=== PATIENT | female | born 1970 | race Caucasian/White ===

== ENCOUNTER 2019-10-04 14:07 | Emergency (ER) | payer SELFPAY ==
--- OUTSIDE RECORDS SUMMARY | 2019-10-04 14:11 | XMS REPORT ---
:1970 Author Organization eClinicalWorks Care Team Providers Name Role Phone Gay Jackson Provider Role Unavailable Allergies No Known Allergies Problems Problem Type Condition Code Onset Dates Condition Status Problem Arthralgia, unspecified joint M25.50 Active Problem Fatigue, unspecified type R53.83 Active Problem History of endometriosis Z87.42 Active Problem Diarrhea, unspecified type R19.7 Active Problem Hypokalemia E87.6 Active Problem Myalgia M79.1 Active Problem Hypomagnesemia E83.42 Active Problem IUD (intrauterine device) in place Z97.5 Active Problem Depression with anxiety F41.8 Active Problem Tobacco abuse counseling Z71.6 Active Problem Lower abdominal pain R10.30 Active Medications No Known Medications Results No Known Results Summary Purpose eClinicalWorks Submission
--- OUTSIDE RECORDS SUMMARY | 2019-10-04 14:11 | XMS REPORT ---
:1970 Author Organization eClinicalWorks Care Team Providers Name Role Phone Gay Jackson Provider Role Unavailable Allergies No Known Allergies Problems Problem Type Condition Code Onset Dates Condition Status Problem Diarrhea, unspecified type R19.7 Active Problem History of endometriosis Z87.42 Active Problem Arthralgia, unspecified joint M25.50 Active Problem Fibromyalgia M79.7 Active Problem Pinworms B80 Active Problem Muscle cramps R25.2 Active Problem Hypomagnesemia E83.42 Active Problem Fatigue, unspecified type R53.83 Active Problem Urinary incontinence, unspecified R32 Active type Problem Abdominal pain, unspecified R10.9 Active abdominal location Problem Lower abdominal pain R10.30 Active Problem Tobacco abuse counseling Z71.6 Active Problem Depression with anxiety F41.8 Active Problem Myalgia M79.1 Active Problem IUD (intrauterine device) in place Z97.5 Active Problem Hypokalemia E87.6 Active Medications No Known Medications Results No Known Results Summary Purpose eClinicalWorks Submission
--- OUTSIDE RECORDS SUMMARY | 2019-10-04 14:11 | XMS REPORT ---
[...] Problem Lower abdominal pain R10.30 Active Medications Medication Code System Code Instructions Start End Date Status Dosage Date Gabapentin [facility] 17176963936 300 MG Orally May 02, Active 1 capsule Twice a day 2018 Results No Known Results Summary Purpose eClinicalWorks Submission
--- OUTSIDE RECORDS SUMMARY | 2019-10-04 14:11 | XMS REPORT ---
:1970 [facility] Address [address] [place] [address] [place] [id number] Care Team Providers Name Role Phone Unavailable Unavailable Unavailable Problems This patient has no known problems. Allergies, Adverse Reactions, Alerts This patient has no known allergies or adverse reactions. Medications This patient has no known medications.
--- OUTSIDE RECORDS SUMMARY | 2019-10-04 14:11 | XMS REPORT ---
:1970 [facility] Team Providers Name Role Phone Gay [...] abdominal pain R10.30 Active Medications Medication Code Code Instructions Start End Status Dosage System Date Date Dicyclomine HCl ND 04463134472 20 MG Orally Active 1 tablet Four times a day Benadryl Allergy ND 35038266218 25 MG Orally Active 1 capsule every 8 hrs as needed Gabapentin ND 29405097229 300 MG Orally April 01, Active 1 capsule Twice a day 2017 for pain Wellbutrin XL ND 38207778888 300 MG Orally February Active 1 tablet Once a day 2017 in the morning Omeprazole ND 27893006442 20 MG Orally Active 1 capsule Once a day ProAir RespiClick [facility] 54327700293 108 (90 Base) Active 2 puffs as MCG/ACT needed Inhalation every 6 hrs Mirtazapine ND 03568076330 15 MG Orally Active 1 tablet Once a day at bedtime Clarithromycin ND 53998337567 500 MG Orally Active 1 tablet Twice a day x10 days Gabapentin ND 78021975586 600 MG Orally June 01, Active 1 tablet Twice daily 2017 Tylenol with ND 16472303806 300-30 MG Active 1 tablet Codeine #3 Orally every 6 as needed hrs Pristiq ND 38466039283 50 MG Orally Active 1 tablet Once a day Naprosyn ND 97703823060 500 MG Orally Active 1 tablet Twice a day with food or milk as needed Gabapentin [facility] 96406083035 300 MG Orally May 02, Active 1 capsule Twice a day 2017 Results No Known Results Summary Purpose eClinicalWorks Submission
[2019-10-04] MEDS ORDERED: HYDROCODONE/APAP 10/325 TAB ONE (14:43)
--- NOTE | 2019-10-04 15:12 | RAD REPORT ---
EXAM DESCRIPTION: RAD - Foot Left 3 View - 10/04/2019 2:55 pm CLINICAL HISTORY: PAIN COMPARISON: No comparisons FINDINGS: Soft tissue swelling is seen along the dorsum of the forefoot. No acute fracture dislocati on evident. Prominent posterior calcaneal spur.
--- NOTE | 2019-10-04 15:26 | ER ---
Nurse's Notes [facility] Name: Rajni Jasso Age: 49 yrs Sex: Female : 1970 Arrival Date: 10/04/2019 Time: 14:09 Bed 19 Private MD: Diagnosis: Contusion of left foot;Abrasion of foot Presentation: 10/04 14:15 Presenting complaint: Patient states: I was stepping out of the truck and stepped on to la1 a concrete block that flipped on to my left foot. Transition of care: patient was not received from another setting of care. Onset of symptoms was October 04, 2019. Risk Assessment: Do you want to hurt yourself or someone else? Patient reports no desire to harm self or others. Initial Sepsis Screen: Does the patient meet any 2 criteria? No. Patient's initial sepsis screen is negative. Does the patient have a suspected source of infection? No. Patient's initial sepsis screen is negative. Care prior to arrival: None. 14:15 Method Of Arrival: Wheelchair la1 14:15 Acuity: SYLVAIN 4 la1 Triage Assessment: 14:25 Injury Description: Bruise sustained to left foot. ca1 LEATHERSMITH: 14:14 LMP N/A - control method la1 Historical: - Allergies: 14:13 Flagyl; constipation, chest pains; la1 14:13 steroids; la1 14:14 Meclizine; la1 14:14 clarithromycin; la1 - PMHx: 14:13 Anxiety; la1 14:14 Fibromyalgia; la1 - Immunization history:: Adult Immunizations up to date. - Social history:: Smoking status: Patient uses tobacco products, smokes one pack cigarettes per day. - Ebola Screening: : No symptoms or risks identified at this time. Screenin:22 Abuse screen: Denies threats or abuse. Denies injuries from another. Nutritional ca1 screening: No deficits noted. Tuberculosis screening: No symptoms or risk factors identified. Fall Risk Fall in past 12 months (25 points). Assessment: 14:22 General: Appears in no apparent distress. comfortable, Behavior is calm, cooperative, ca1 appropriate for age. Pain: Complains of pain in left foot Pain currently is 10 out of 10 on a pain scale. Neuro: Level of Consciousness is awake, alert, obeys commands. Cardiovascular: Heart tones S1 S2 present Capillary refill < 3 seconds Patient's skin is warm and dry. Derm: Skin is intact, is healthy with good turgor, Skin is pink, warm \T\ dry. Bruising that is dark purple, on dorsum of left foot. Musculoskeletal: Circulation, motion, and sensation intact. Capillary refill < 3 seconds, Swelling present in dorsum of left foot. 15:30 Reassessment: Patient appears in no apparent distress at this time. Patient is alert, ca1 oriented x 3, equal unlabored respirations, skin warm/dry/pink. Vital Signs: 14:14 BP 140 / 91; Pulse 115; Resp 16; Temp 98.4; Pulse Ox 100% on R/A; Weight 100.24 kg; la1 Height 5 ft. 9 in. (175.26 cm); 15:30 BP 135 / 86; Pulse 99; Resp 17 S; Pulse Ox 100% on R/A; ca1 14:14 Body Mass Index 32.64 (100.24 kg, 175.26 cm) la1 ED Course: 14:09 Patient arrived in ED. mr 14:13 Arm band placed on left wrist. la1 14:15 Triage completed. la1 14:16 Edith Negrete FNP-C is [facility]. kb 14:16 Gus Nair MD is Attending Physician. kb 14:18 Makayla Jeffrey, ABHILASH is Primary Nurse. ca1 14:22 Patient has correct armband on for positive identification. Bed in low position. Call ca1 light in reach. Side rails up X 1. Pulse ox on. NIBP on. Elevated left foot Ice pack applied on affected area. 14:26 No provider procedures requiring assistance completed. Patient did not have IV access ca1 during this emergency room visit. 14:55 Foot Left 3 View XRAY In Process Unspecified. EDMS 15:40 Crutch training done. Ortho shoe applied to left foot. mh5 Administered Medications: 14:35 Drug: [place] 10 mg-325 mg 1 tabs Route: PO; ca1 15:35 Follow up: Response: No adverse reaction; Pain is decreased; RASS: Alert and Calm (0) ca1 Outcome: 15:25 Discharge ordered by . kb 15:52 Discharged to home with crutches, with family. ca1 15:52 Condition: stable 15:52 Discharge instructions given to patient, Instructed on discharge instructions, follow up and referral plans. medication usage, Demonstrated understanding of instructions, follow-up care, medications, Prescriptions given X 1. 15:52 Patient left the ED. ca1 Signatures: Dispatcher [employer] EDEdith Padgett, TIM-C TIM-Rebecca AlvaradoaMary Grace mr Brown, Giorgio, RN RN Shanae Del [facility] Makayla Jeffrey RN RN ca1
--- NOTE | 2019-10-04 15:26 | EDPHYS ---
Physician Documentation [facility] Name: Rajni Jasso Age: 49 yrs Sex: Female : 1970 Arrival Date: 10/04/2019 Time: 14:09 Bed 19 Private MD: ED Physician Gus Nair HPI: 10/04 15:23 This 49 yrs old Female presents to ER via Wheelchair with complaints of Foot kb Injury. 15:23 The patient presents with an abrasion, an injury, pain, that is acute, swelling, kb tenderness. The complaints affect the dorsum of left foot. Context: The problem was sustained outdoors, resulted from a direct blow, brick, the patient can fully bear weight, the patient is able to ambulate, Problem is a result from a previous injury: No. Onset: The symptoms/episode began/occurred just prior to arrival. Modifying factors: The symptoms are alleviated by nothing. the symptoms are aggravated by weight bearing. Associated signs and symptoms: Pertinent positives: swelling. Treatment prior to arrival includes: no previous treatment. Severity of symptoms: At their worst the symptoms were mild, moderate, in the emergency department the symptoms are unchanged. The patient has not experienced similar symptoms in the past. The patient has not recently seen a physician. 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 - Social history:: Smoking status: Patient uses tobacco products, smokes one pack cigarettes per day. - Ebola Screening: : No symptoms or risks identified at this time. ROS: 15:22 Constitutional: Negative for fever, chills, and weight loss, ENT: Negative for injury, kb pain, and discharge, Neck: Negative for injury, pain, and swelling, Cardiovascular: Negative for chest pain, palpitations, and edema, Respiratory: Negative for shortness of breath, cough, wheezing, and pleuritic chest pain, Abdomen/GI: Negative for abdominal pain, nausea, vomiting, diarrhea, and constipation, Back: Negative for injury and pain, Neuro: Negative for headache, weakness, numbness, tingling, and seizure. 15:22 MS/extremity: Positive for injury or acute deformity, abrasion, pain, swelling, tenderness, of the dorsum of left foot. Exam: 15:22 Constitutional: This is a well developed, well nourished patient who is awake, alert, kb and in no acute distress. Head/Face: Normocephalic, atraumatic. Chest/axilla: Normal chest wall appearance and motion. Nontender with no deformity. No lesions are appreciated. Cardiovascular: Regular rate and rhythm with a normal S1 and S2. No gallops, murmurs, or rubs. Normal PMI, no JVD. No pulse deficits. Respiratory: Lungs have equal breath sounds bilaterally, clear to auscultation and percussion. No rales, rhonchi or wheezes noted. No increased work of breathing, no retractions or nasal flaring. Abdomen/GI: Soft, non-tender, with normal bowel sounds. No distension or tympany. No guarding or rebound. No evidence of tenderness throughout. Neuro: Awake and alert, GCS 15, oriented to person, place, time, and situation. Cranial nerves II-XII grossly intact. Motor strength 5/5 in all extremities. Sensory grossly intact. Cerebellar exam normal. Normal gait. 15:22 Musculoskeletal/extremity: Extremities: grossly normal except: noted in the dorsum of left foot: abrasion, pain, swelling, tenderness, ROM: intact in all extremities, Circulation is intact in all extremities. Sensation intact. Weight bearing: able to fully bear weight. Vital Signs: 14:14 BP 140 / 91; Pulse 115; Resp 16; Temp 98.4; Pulse Ox 100% on R/A; Weight 100.24 kg; la1 Height 5 ft. 9 in. (175.26 cm); 15:30 BP 135 / 86; Pulse 99; Resp 17 S; Pulse Ox 100% on R/A; ca1 14:14 Body Mass Index 32.64 (100.24 kg, 175.26 cm) la1 MDM: 14:16 Patient medically screened. kb 15:21 Data reviewed: vital signs, nurses notes. Data interpreted: Pulse oximetry: on room air kb is 100 %. Interpretation: normal. Counseling: I had a detailed discussion with the patient and/or guardian regarding: the historical points, exam findings, and any diagnostic results supporting the discharge/admit diagnosis, lab results, the need for outpatient follow up, a family practitioner, to return to the emergency department if symptoms worsen or persist or if there are any questions or concerns that arise at home. 15:30 ED course: post op shoe and crutches given per pt request. 10/04 14:29 Order name: Foot Left 3 View XRAY; Complete Time: 15:13 10/04 15:30 Order name: Post-op Orthopedic Shoe 10/04 15:30 Order name: Crutches Administered Medications: 14:35 Drug: [place] 10 mg-325 mg 1 tabs Route: PO; ca1 15:35 Follow up: Response: No adverse reaction; Pain is decreased; RASS: Alert and Calm (0) ca1 Disposition: 16:33 Co-signature as Attending Physician, Gus Nair MD I agree with the assessment and kdr plan of care. Disposition: 10/04/19 15:25 Discharged to Home. Impression: Contusion of left foot, Abrasion of foot. - Condition is Stable. - Discharge Instructions: Foot Contusion, [id number]. - Prescriptions for Diclofenac Sodium 75 mg Oral Tablet, Delayed Release (E.C.) - take 1 tablet by ORAL route 2 times per day As needed; 30 tablet. - Medication Reconciliation Form, Thank You Letter, Antibiotic Education, Prescription Opioid Use form. - Follow up: Emergency Department; When: As needed; Reason: Worsening of condition. Follow up: Private Physician; When: 2 - 3 days; Reason: Recheck today's complaints, Continuance of care, Re-evaluation by your physician. Signatures: Dispatcher [employer] EDSC Edith Negrete, BORING MACHINE SET UP OPERATOR JIG-C BORING MACHINE SET UP OPERATOR JIG-Gus Medina MD MD kdr Attema, Lee, RN RN la1 Makayla Jeffrey RN RN ca1 Corrections: (The following items were deleted from the chart) 15:52 15:25 10/04/2019 15:25 Discharged to Home. Impression: Contusion of left foot; Abrasion ca1 of foot. Condition is Stable. Forms are Medication Reconciliation Form, Thank You Letter, Antibiotic Education, Prescription Opioid Use. Follow up: Emergency Department; When: As needed; Reason: Worsening of condition. Follow up: Private Physician; When: 2 - 3 days; Reason: Recheck today's complaints, Continuance of care, Re-evaluation by your physician. kb
[2019-10-04 17:08] VITALS: TEMP 98.4; O2SAT 100
[2019-10-04 17:09] VITALS: BP 135/86
== END 2019-10-04 15:52 | disposition home or self-care (01) ==
LOC: ER 14:07
DX: S90.32XA Contusion of left foot, initial encounter (principal); S90.812A Abrasion, left foot, initial encounter; W22.8XXA Striking against or struck by other objects, initial encounter; Y93.89 Activity, other specified; Y92.9 Unspecified place or not applicable; F17.210 Nicotine dependence, cigarettes, uncomplicated; Z88.3 Allergy status to other anti-infective agents
CPT/HCPCS: 99284

== ENCOUNTER 2023-03-22 14:04 | Emergency (ER) | payer OTHER ==
--- OUTSIDE RECORDS SUMMARY | 2023-03-22 14:08 | XMS REPORT | Continuity of Care Document ---
:1970 Author Organization [facility] t Address [address] [place] [id number] Care Team Providers Name Role Phone PCP, PATIENT DOES NOT HAVE A Primary Care Physician UnavailDARNELL Collins Attending Clinician Unavailable RIANNA VALERA Attending Clinician Unavailable FAREED ZIMMERMAN Attending Clinician Unavailable ADAL VALERA Attending Clinician Unavailable HANANE ARREDONDO Attending Clinician Unavailable HAYDE NAVA Attending Clinician Unavailable Payers Payer Name Policy Type Policy Number Effective Date Expiration Date S kevin RAMOSKALEIDA HEALTHEmilee [place] [id number] 2022 2022 HEALTH PLAN 00:00:00 00:00:00 [employer] 9 [id number] 2022 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 00:00:00 94 ON STAND KELLY MATHEWS - [id number] 2022 AETNA 00:00:00 Problems Condition Condition Condition Status Onset Resolution Last Treating Co mments Source Name Details Category Date Date Treatment Clinician Date Varicose Varicose Disease Active UT veins of veins of 01-11 Health both legs both legs 00:00: with edema with edema 00 PAOD PAOD Disease Active UT (periphera (periphera 01-06 He alth l arterial l arterial 00:00: occlusive occlusive 00 disease) disease) Arthralgia Arthralgia Problem Active C ommon , , Spirit unspecifie unspecifie - [facility]I d joint d joint [facility] Fatigue, Fatigue, Problem Active Commo n unspecifie unspecifie Sp zachary d type d type - CHI [facility] History of History of Problem Active C ommon endometrio endometrio Sp zachary sis sis [facility] Hypokalemi Hypokalemi Problem Active C ommon a a Spirit [facility] Myalgia Myalgia Problem Active Common [facility] Hypomagnes Hypomagnes Problem Active C ommon emia emia [facility] IUD IUD Problem Active Common (intrauter (intrauter Sp zachary ine [facility] device) in device) in [facility] Depression Depression Problem Active C ommon with with Spirit anxiety anxiety - [facility] Tobacco Tobacco Problem Active Common abuse abuse Spirit counseling counseling [facility] Lower Lower Problem Active Common abdominal abdominal Spir it pain pain [facility] Diarrhea, Diarrhea, Problem Active Com mon unspecifie unspecifie Sp zachary d type d [facility] Fibromyalg Fibromyalg Problem Active C ommon ia ia [facility] Pinworms Pinworms Problem Active Commo n [facility] Muscle Muscle Problem Active Common cramps cramps [facility] Urinary Urinary Problem Active Common incontinen incontinen Sp zachary ce, ce, - CHI unspecifie unspecifie d type d [facility] Abdominal Abdominal Problem Active Com mon pain, pain, Spirit unspecifie unspecifie - [facility] d d abdominal abdominal Luke s location location [facility] Allergies, Adverse Reactions, Alerts Allergy Allergy Status Severity Reaction(s) Onset Inactive Treating Comm ents Source Name Type Date Date Clinician Tobramyc Propensi Active Kelly in ty to 3-16 Seybold adverse 00:00: - reaction 00 Externa s l Meclizin Propensi Active Kelly e ty to 3-16 Seybold adverse 00:00: - reaction 00 Externa s l Prometha Allergy Active Other UT zine to 08-06 reaction( Health substan 00:00: s): Other e 00 Prometha Propensi Active Other Kelly henderson ty to 08-06 reaction( Seybold adverse 00:00: s): Other - reaction 00 Externa s l CLARITHR DRUG Active Anaphylaxis Uni vers OMYCIN INGREDI 5-05 ity of 00[facility]: [place] [facility] METRONID DRUG Active Anaphylaxis Uni vers AZOLE INGREDI 5-05 ity of HCL 00:00: [facility] MECLIZIN DRUG Active Anaphylaxis Uni vers E INGREDI 5-05 ity of 00:00: [facility] Clarithr Allergy Active Anaphylaxis Other UT omycin to 5-05 reaction( Health substanc 00:00: s): e 00 ireegular heart beats and high pulse Meclizin Allergy Active Anaphylaxis Other UT e to 5-05 reaction( Health substanc 00:00: s): e 00 caused severe dizziness /SOB/ches t heaviness Clarithr Propensi Active Anaphylaxis Other K elsey omycin ty to 5-05 reaction( Seybold adverse 00:00: s): - reaction 00 ireegular Exter na s heart l beats and high pulse Metronid Allergy Active Anaphylaxis 2016-11 Other UT azole to 1-17 reaction( Health substanc 00:00: s): e 00 Unknown Metronid Propensi Active Anaphylaxis 2016-11 Other K elsey azole ty to 1-17 reaction( Seybold Hcl adverse 00:00: s): - reaction 00 Unknown Externa s l Penicill Allergy Active Other UT ins to 5-27 reaction( Health substanc 00:00: s): e 00 Unknown Penicill Propensi Active Other Kelly ins ty to 5-27 reaction( Seybold adverse 00:00: s): - reaction 00 Unknown Externa s l PREDNISO DRUG Active Anaphylaxis 2013-11 Uni vers NE INGREDI 0-10 ity of 00:00: [place] [facility] Predniso Propensi Active Anaphylaxis 2013-11 U T ne ty to 0-10 Health adverse 00:00: reaction 00 s Predniso Propensi Active Anaphylaxis 2013-11 K elsey ne ty to 0-10 Seybold adverse 00:00: - reaction 00 Externa s l Steroids Adverse Active Info Not Commo n Reaction Available Spiri t - CHI [facility] Meclizin Adverse Active caused Common e HCl Reaction severe Spirit dizziness/SO - CH I B/chest St heaviness [facility] Clarithr Adverse Active ireegular Comm on omycin Reaction heart beats Spi rit and high - CHI pulse [facility] steroid Propensi Active Kelly [Other] ty to Seybold adverse - reaction Externa s l Social History Social Habit Start Date Stop Date Quantity Comments Source History of tobacco Cigarette Smoker Kelly Tuanedy - use External Alcohol intake 2023-01-25 2023-01-25 Ex-drinker Kelly cross - 00:00:00 00:00:00 (finding) External Cigarettes smoked 2023-01-21 2023-01-21 Kelly Dickersonedy - current (pack per 00:00:00 00:00:00 Externa l day) - Reported Cigarette 2023-01-21 2023-01-21 Kelly Dickersonedy - pack-years 00:00:00 00:00:00 External Tobacco use and 2023-01-21 2023-01-21 Smokeless tobacco Ke edith darline - exposure 00:00:00 00:00:00 non-user External Sex [birth year] At [birth year] Kelly gregorio - 00:00:00 00:00:00 External Smoking Status Start Date Stop Date Source Smokes tobacco daily 2023-01-21 00:00:00 Kelly Dickersonedy - External Medications Ordered Filled Start Stop Current Ordering Indication Dosage Frequency Signature Comments Components Source Medication Medication Date Date Medication? Clinician (SIG) Name Name Gabapentin 2022- No 800mg Take 800 K elsey 800 MG oral 3-20 03-20 mg by Seybol d Tablet 17:22: 00:00 mouth 3 - 27 :00 times Externa daily l Amitriptyli 2022- No 100mg Take 100 Kelly ne HCl 100 3-20 03-20 mg by Seybold MG oral 17:22: 00:00 mouth - Tablet 27 :00 nightly Externa l Metoprolol 2022- No 100mg Take 100 K elsey Succinate 3-20 03-20 mg by Seybold 100 MG oral 17:22: 00:00 mouth - TABLET SR 27 :00 daily Externa 24 HR l Folic Acid 2022- No 1mg Take 1 mg K elsey 1 MG oral 3-20 03-20 by mouth Seybo ld tablet 17:22: 00:00 daily - 27 :00 Externa l Omeprazole 2022- No 40mg Take 40 mg Kelly 40 MG oral 3-20 03-20 by mouth Seyb old Delayed 17:22: 00:00 daily - Release 27 :00 Externa Capsule l Escitalopra 2022- No 10mg Take 10 mg Kelly m Oxalate 3-20 03-20 by mouth Seybo ld 10 MG oral 17:22: 00:00 daily - Tablet 27 :00 Externa l Semaglutide Yes 1mg Inject 1 Ke lsey -Weight 3-20 mg into Seybold Management 14:58: the skin - (Wegovy) 1 15 once a Externa MG/0.5ML week l subcutaneou s Solution Auto-inject or Probiotic Yes Take by Kelse y Product 3-20 mouth Seybold (PROBIOTIC 14:54: - DAILY OR) 48 Externa l Vitamin D, Yes 1{tbl} Take 1 Angel sey Ergocalcife 3-20 tablet by Vasile denney, [id number] 14:53: mouth once - units oral 55 a week Externa Capsule l DiphenhydrA 2022- No 25mg Take 25 mg Kelly MINE 3-20 03-20 by mouth Seybold (BENADRYL) 14:50: 00:00 at bedtime - 25 MG oral 15 :00 Externa capsule l Bupropion 2022- No 150mg Take 150 Ke lsey HCL XL 150 3-20 03-20 mg by Seybold MG OR TB24 14:49: 00:00 mouth - 38 :00 Externa l Amitriptyli Yes [id number] 100mg Take 1 Kelly ne HCl 100 3-20 tablet Seybold MG oral 00:00: (100 mg - Tablet 00 total) by Externa mouth l nightly busPIRone Yes [id number] 10mg Take 1 K elsey HCl 10 MG 3-20 tablet (10 Seyb old oral Tablet 00:00: mg total) - 00 by mouth Externa daily l Escitalopra Yes [id number] 10mg Take 1 Kelly m Oxalate 3-20 tablet (10 Seyb old 10 MG oral 00:00: mg total) - Tablet 00 by mouth Externa daily l Metoprolol 2022-0 Yes [id number] 100mg Take 1 K elsey Succinate 3-20 tablet Seybold 100 MG oral 00:00: (100 mg - TABLET SR 00 total) by Exter na 24 HR mouth l daily Folic Acid 2022-0 Yes [id number] 1mg Take 1 Kelly 1 MG oral 3-20 tablet (1 Seybo ld tablet 00:00: mg total) - 00 by mouth Externa daily l Gabapentin 2022-0 Yes [id number] 800mg Take 1 Kelly 800 MG oral 3-20 tablet Seybol d Tablet 00:00: (800 mg - 00 total) by Externa mouth 3 l times daily Omeprazole 2022-0 Yes [id number] 40mg Take 1 Kelly 40 MG oral 3-20 capsule Seybol d Delayed 00:00: (40 mg - Release 00 total) by Externa Capsule mouth l daily Meloxicam 2022-0 Yes [id number] 7.5mg Take 1 Kelly 7.5 MG oral 3-20 tablet Seybol d Tablet 00:00: (7.5 mg - 00 total) by Externa mouth l daily Gabapentin 2022-0 2022- No 600mg Take 600 K elsey 600 MG oral 3-15 03-20 mg by Seybol d Tablet 00:00: 00:00 mouth 3 - 00 :00 times Externa daily l metoprolol 2022-0 Yes metoprolol U T succinate 3-06 succinate Healt h XL 10:42: ER 100 mg (Toprol-XL) 27 tablet,ext 100 MG 24 ended hr tablet release 24 hr TAKE ONE (1) TABLET(S) BY MOUTH DAILY. omeprazole 2022-0 Yes omeprazole U T (PriLOSEC) 3-06 [address] 10:42: capsule,de capsule 27 layed release TAKE ONE (1) CAPSULE(S) BY MOUTH ONCE A DAY. amitriptyli 2022-0 Yes amitriptyl UT ne (Elavil) 3-06 ine 100 mg He alth 100 MG 10:42: tablet tablet 26 TAKE ONE (1) TABLET(S) BY MOUTH ONCE A DAY. buPROPion 2022-0 Yes 150mg Take 150 UT XL 3-06 mg by Health (Wellbutrin 10:42: mouth. XL) 150 MG 26 24 hr tablet escitalopra Yes escitalopr UT m (Lexapro) 3-06 am 10 mg Heal th 10 MG 10:42: tablet tablet 26 TAKE ONE (1) TABLET(S) BY MOUTH ONCE A DAY. folic acid Yes folic acid U T (Folvite) 1 3-06 1 mg Health MG tablet 10:42: tablet 26 TAKE ONE (1) TABLET(S) BY MOUTH ONCE A DAY. gabapentin Yes gabapentin U T (Neurontin) 3-06 600 mg Health 600 MG 10:42: tablet tablet 26 TAKE ONE (1) TABLET(S) BY MOUTH THREE TIMES A DAY. busPIRone 2022- No 10mg Take 10 mg K elsey HCl 10 MG 2-18 03-20 by mouth Seybo ld oral Tablet 00:00: 00:00 daily - 00 :00 Externa l Acetaminoph Yes 1{tbl} Q.[id number] Take 1 Kelly en-Codeine 2-15 [id number] tablet by Seybedy #3 300-30 00:00: 3D mouth - MG oral 00 every 8 Externa Tablet hours as l needed Metronidazo 2022- No 500mg Take 500 Kelly le 500 MG 2-10 03-20 mg by Seybold oral Tablet 00:00: 00:00 mouth 2 - 00 :00 times Externa daily FOR l 7 DAYS Amitriptyli 2022- No 100mg Take 100 Kelly ne HCl 50 1-20 03-20 mg by Seybold MG oral 00:00: 00:00 mouth - Tablet 00 :00 nightly Externa l ergocalcife Yes [id number] Take UT rol 1-18 50,000 Health (Vitamin 00:00: Units by D2) 1.25 MG 00 mouth 1 (15441 UT) (one) time capsule per week. Gabapentin Gabapentin Yes Gay 1 tablet Common 7-25 [facility] Spirit 00:00: - [facility]I 00 [facility] Gabapentin Gabapentin Yes Gay 1 capsule Common 6-25 [facility] 00:00: - CHI 00 [facility] Wellbutrin Wellbutrin Yes Gay 1 tablet Common XL XL 4-27 Millender in the Spirit 00:00: morning - [facility]I 00 [facility] Dicyclomine Dicyclomine Yes Gay 1 tablet Common HCl HCl Millender [facility] Benadryl Benadryl Yes Gay 1 capsule C ommon Allergy Allergy Millender as needed [facility] Omeprazole Omeprazole Yes Gay 1 capsule Common Millender [facility] ProAir ProAir Yes Gay 2 puffs as Comm on RespiClick RespiClick Millender needed [facility] Mirtazapine Mirtazapine Yes Gay 1 tablet Common Millender at bedtime Spir it [facility] Clarithromy Clarithromy Yes Gay 1 tablet Common dany dany [facility] Tylenol Tylenol Yes Gay 1 tablet Comm on with with Millender as needed Spiri t Codeine #3 Codeine #3 - C HI [facility] Pristiq Pristiq Yes Gay 1 tablet Comm on Millender [facility] Naprosyn Naprosyn Yes Gay 1 tablet Co mmon Millender with food Spiri t or milk as - CHI needed [facility] Immunizations Ordered Immunization Filled Immunization Date Status Commen ts Source Name Name Tdap- (Boostrix, 2016-12-15 Completed Kelly martinez Adacel) 00:00:00 - External Rubella 2010-02-11 Aramis Mathews 00:00:00 - External Td,absorbed PF 2004-11-08 Completed Kelly cross KSC,Admin,unspecifie 00:00:00 - Ex ternal d Vital Signs Vital Name Observation Time Observation Value Comments Source Systolic blood 2023-01-25 19:43:00 102 mm[Hg] Kelly Mathews - pressure External Diastolic blood 2023-01-25 19:43:00 66 mm[Hg] Sammy Mathews - pressure External Heart rate 2023-01-25 19:43:00 81 /min Kelly martinez - External Body temperature 2023-01-25 19:43:00 36.67 Millie Bhavna Mathews - External Respiratory rate 2023-01-25 19:43:00 15 /min Bhavna Mathews - External Body height 2023-01-25 19:43:00 175.3 cm Kelly taylorbohaydee - External Body weight 2023-01-25 19:43:00 104.781 kg Kelly martinez - External BMI 2023-01-25 19:43:00 34.11 kg/m2 Kelly taylorbohaydee - External Procedures This patient has no known procedures. Encounters Start End Encounter Admission Attending Care Care Encounter Source Date/Time Date/Time Type Type Clinicians Facility Department ID 2023-02-11 Outpatient [facility] [id number] Common 10:57:00 [id number] [facility] 2023-02-08 Outpatient [facility] [id number] UT 12:33:20 [id number] [facility] 2023-02-05 Outpatient [facility] [id number] UT 10:42:09 [id number] [facility] 2023-02-04 Outpatient [facility] [id number] UT 12:13:56 [id number] [facility] 2023-02-01 Outpatient [facility] [id number] Common 10:49:00 [id number] [facility] 2023-01-25 Outpatient [facility] [id number] UT 14:14:33 [id number] [facility] 2023-01-11 Outpatient [facility] [id number] UT 09:13:23 [id number] [facility] 2023-01-07 Outpatient [facility] [id number] UT 14:08:56 [id number] [facility] 2022-12-31 Outpatient [facility] [id number] UT 16:58:36 [id number] [facility] 2022-12-28 Outpatient [facility] [id number] UT 13:00:57 [id number] [facility] 2022-03-20 Outpatient ALE, [facility] [id number] UT 13:13:47 DARNELL [id number] [facility] 2023-04-30 2023-04-30 Outpatient RIANNA VALERA [id number] Kelly 14:40:00 14:40:00 Seybol d 2023-04-30 2023-04-30 Outpatient KELLY ZIMMERMAN [id number] Kelly 14:10:00 14:10:00 FAREED Seybol d 2023-03-12 2023-03-12 Outpatient KELLY VALERA [id number] Kelly 00:00:00 00:00:00 ADAL Seybol d 2023-03-10 2023-03-10 Outpatient KELLY ARREDONDO [id number] Kelly 00:00:00 00:00:00 HANANE Seybol d 2023-03-08 2023-03-08 Outpatient KELLY ARREDONDO [id number] Kelly 00:00:00 00:00:00 HANANE Seybol d 2023-03-06 2023-03-06 Outpatient KELLY VALERA [id number] Kelly 00:00:00 00:00:00 ADAL Seybol d 2023-02-22 2023-02-22 Outpatient KELLY VALERA [id number] Kelly 00:00:00 00:00:00 ADAL Seybol d 2023-02-19 2023-02-19 Outpatient KELLY VALERA [id number] Kelly 00:00:00 00:00:00 ADAL Seybol d 2023-02-15 2023-02-15 Outpatient KELLY VALERA [id number] Kelly 00:00:00 00:00:00 ADAL Seybol d 2023-02-09 2023-02-09 Outpatient KELLY VALERA [id number] Kelly 00:00:00 00:00:00 ADAL Seybol d 2023-02-09 2023-02-09 Outpatient KELLY VALERA [id number] Kelly 00:00:00 00:00:00 ADAL Seybol d 2023-02-08 2023-02-08 Outpatient ALE [facility] [id number] UT 09:45:00 09:45:00 [facility] 2023-02-08 2023-02-08 Outpatient [facility] [id number] UT 09:00:00 09:00:00 Health 2023-02-08 2023-02-08 Outpatient KELLY VALERA [id number] Kelly 00:00:00 00:00:00 ADAL Seybol d 2023-02-08 2023-02-08 Outpatient KELLY VALERA [id number] Kelly 00:00:00 00:00:00 ADAL Seybol d 2023-01-27 2023-01-27 Outpatient KLELY VALERA [id number] Kelly 11:45:00 11:45:00 ADAL Seybol d 2023-01-26 2023-01-26 Outpatient KELLY VALERA [id number] Kelly 00:00:00 00:00:00 ADAL Seybol d 2023-01-25 2023-01-25 Outpatient KELLY VALERA [id number] Kelly 14:30:00 14:30:00 ADAL Seybol d 2023-01-25 2023-01-25 Outpatient KELLY VALERA [id number] Kelly 00:00:00 00:00:00 ADAL Seybol d 2023-01-25 2023-01-25 Outpatient KELLY VALERA [id number] Kelly 00:00:00 00:00:00 ADAL Seybol d 2023-01-21 2023-01-21 Outpatient KELLY VALERA [id number] Kelly 00:00:00 00:00:00 ADAL Seybol d 2023-01-11 2023-01-11 Office JULES AGUILERA [facility] [id number] [place] 09:15:00 09:15:00 Visit DARNELL ARNOLD [id number] Shane LOUIE [id number] [facility] [id number] 2021-02-21 2021-02-21 Outpatient Emilee NAVA [facility] [id number] Univers 12:10:00 11:45:22 HAYDE redd [facility] 2021-01-31 2021-01-31 Outpatient Emilee NAVA [facility] [id number] Univers 12:10:00 12:09:15 HAYDE redd [facility] 2019-04-13 2019-04-13 Out[facility] [id number] Common 16:39:00 16:39:00 [facility] 2018-07-08 2018-07-08 Out[facility] [id number] Common 08:43:00 08:43:[address] [facility] [address] [facility] 2018-06-01 2018-06-01 Out[facility] [id number] Common 12:39:00 12:39:[address] [facility] [address] [facility] 2018-05-02 2018-05-02 Out[facility] [id number] Common 11:12:00 11:12:[address] [facility] [address] [facility] 2018-04-07 2018-04-07 Out[facility] [id number] Common 10:51:00 10:51:[address] [facility] [address] [facility] 2018-04-05 2018-04-05 Out[facility] [id number] Common 11:14:00 11:14:[address] [facility] [address] [facility] 2018-04-01 2018-04-01 Out[facility] [id number] Common 13:00:00 13:00:[address] [facility] [address] [facility] Results This patient has no known results.
--- NOTE | 2023-03-22 14:46 | ER ---
Nurse's Notes [facility] Name: Rajni Jasso Age: 52 yrs Sex: Female : 1970 Arrival Date: 03/22/2023 Time: 14:04 Bed IW2 Private MD: Diagnosis: Foreign body in right ear Presentation: 03/22 14:24 Chief complaint: Patient states: Ear bud rubber piece in right ear. Pt states she noted nj1 a little bit ago when she look at the case and saw it missing. Ear was hurting but thought it was allergies until she realized piece was missing. Coronavirus screen: Vaccine status: Patient reports receiving the 2nd dose of the covid vaccine. Ebola Screen: Patient denies travel to an Ebola-affected area in the 21 days before illness onset. Initial Sepsis Screen: Does the patient meet any 2 criteria? No. Patient's initial sepsis screen is negative. Does the patient have a suspected source of infection? No. Patient's initial sepsis screen is negative. Risk Assessment: Do you want to hurt yourself or someone else? Patient reports no desire to harm self or others. Onset of symptoms was March 22, 2023. 14:24 Method Of Arrival: Ambulatory [facility] 14:24 Acuity: SYLVAIN 4 nj1 Triage Assessment: 14:24 General: Appears in no apparent distress. comfortable, Behavior is calm, cooperative, nj1 appropriate for age. Pain: Complains of pain in right ear Pain currently is 9 out of 10 on a pain scale. EENT: Reports Foreign object in right ear.. Neuro: Level of Consciousness is awake, alert, obeys commands. Cardiovascular: Patient's skin is warm and dry. Respiratory: Airway is patent Respiratory effort is even, unlabored. Historical: - Allergies: 14:28 Clarithromycin; nj1 14:28 Flagyl; constipation, chest pains; nj1 14:28 Meclizine; nj1 14:28 steroids; nj1 - Home Meds: 14:36 escitalopram oxalate 10 mg oral tablet 1 tab daily [Active]; metoprolol succinate 100 nj1 mg oral Tablet, Extended Release 24 hr 1 tab daily [Active]; folic acid 1 mg Oral tablet 1 tab daily [Active]; buspirone 10 mg Oral tablet 1 tab daily [Active]; omeprazole 40 mg Oral capsule,delayed release (e.c.) 1 cap daily [Active]; Vitamin D Oral 23919 unit daily [Active]; amitriptyline 100 mg Oral tablet 1 tab every day at bedtime [Active]; meloxicam 7.5 mg oral tablet 1 tab daily [Active]; gabapentin 800 mg oral tablet 1 tab 3 times per day [Active]; Probiotic oral [Active]; - PMHx: 14:28 Anxiety; Fibromyalgia; neuropathy; tachycardia; nj1 - Immunization history:: Client reports receiving the 2nd dose of the Covid vaccine. - Social history:: Smoking status: Patient reports the use of cigarette tobacco products, smokes one pack cigarettes per day. Vital Signs: 14:24 BP 134 / 80; Pulse 81; Resp 17; Temp 98.1; Pulse Ox 100% ; Weight 107.5 kg; Height 5 nj1 ft. 9 in. ; Pain 10/10; 14:24 Body Mass Index 35.00 (107.50 kg, 175.26 cm) nj1 14:24 Pain Scale: Adult [facility] ED Course: 14:06 Patient arrived in ED. rg4 14:28 Triage completed. nj1 14:30 Arm band placed on right wrist. nj1 14:33 Michael Anna DO is Attending Physician. ms3 15:31 No provider procedures requiring assistance completed. Patient did not have IV access ko1 during this emergency room visit. Administered Medications: No medications were administered Outcome: 14:46 Discharge ordered by MD. ms3 15:31 Discharged to home ambulatory. ko1 15:31 Condition: stable 15:31 Discharge instructions given to patient, Instructed on discharge instructions, follow up and referral plans. Demonstrated understanding of instructions, follow-up care. 15:32 Patient left the ED. ko1 Signatures: Melia Dos Santos rg4 Michael Anna DO DO ms3 Mariah Rodriges, RN RN ko1 Liyah Gallego, ABHILASH RN nj1 Corrections: (The following items were deleted from the chart) 14:47 14:20 General: Appears in no apparent distress. comfortable, Behavior is calm, nj1 cooperative, appropriate for age, nj1 14:47 14:20 Pain: Complains of pain in right ear Pain currently is 9 out of 10 on a pain nj1 scale. nj1 14:47 14:20 EENT: Reports Foreign object in right ear.. nj1 nj1 14:47 14:20 Neuro: Level of Consciousness is awake, alert, obeys commands, [place] [id number] 14:20 Cardiovascular: Patient's skin is warm and dry. [place] [id number] 14:20 Respiratory: Airway is patent Respiratory effort is even, unlabored, [place] [id number]
--- NOTE | 2023-03-22 14:46 | EDPHYS ---
Physician Documentation [facility] Name: Rajni Jasso Age: 52 yrs Sex: Female : 1970 Arrival Date: 03/22/2023 Time: 14:04 Bed IW2 Private MD: ED Physician Michael Anna HPI: 03/22 14:47 This 52 yrs old Female presents to ER via Ambulatory with complaints of Foreign Body In ms3 Ear. 14:47 52-year-old female with past medical history of anxiety, fibromyalgia, neuropathy, ms3 tachycardia presents for foreign body in right ear. Patient states she noticed the earbud in her ear approximately 30 minutes prior to arrival. Patient denies alleviating or inciting factors. Patient states she is having 10/10 right ear pain. Historical: - Allergies: 14:28 Clarithromycin; nj1 14:28 Flagyl; constipation, chest pains; nj1 14:28 Meclizine; nj1 14:28 steroids; nj1 - Home Meds: 14:36 escitalopram oxalate 10 mg oral tablet 1 tab daily [Active]; metoprolol succinate 100 nj1 mg oral Tablet, Extended Release 24 hr 1 tab daily [Active]; folic acid 1 mg Oral tablet 1 tab daily [Active]; buspirone 10 mg Oral tablet 1 tab daily [Active]; omeprazole 40 mg Oral capsule,delayed release (e.c.) 1 cap daily [Active]; Vitamin D Oral 71756 unit daily [Active]; amitriptyline 100 mg Oral tablet 1 tab every day at bedtime [Active]; meloxicam 7.5 mg oral tablet 1 tab daily [Active]; gabapentin 800 mg oral tablet 1 tab 3 times per day [Active]; Probiotic oral [Active]; - PMHx: 14:28 Anxiety; Fibromyalgia; neuropathy; tachycardia; nj1 - Immunization history:: Client reports receiving the 2nd dose of the Covid vaccine. - Social history:: Smoking status: Patient reports the use of cigarette tobacco products, smokes one pack cigarettes per day. ROS: 14:47 Constitutional: Negative for fever, and chills. Eyes: Negative for injury, pain, ms3 redness, and discharge, Neck: Negative for injury, pain, and swelling, Cardiovascular: Negative for chest pain, and palpitations. Respiratory: Negative for shortness of breath, cough, wheezing, and pleuritic chest pain, Abdomen/GI: Negative for abdominal pain, nausea, vomiting, diarrhea, and constipation, MS/Extremity: Negative for injury and deformity, Skin: Negative for injury, rash, and discoloration. 14:47 ENT: Positive for foreign body sensation. 14:47 All other systems are negative. Exam: 14:47 Constitutional: This is a well developed, well nourished patient who is awake, alert, ms3 and in no acute distress. Head/Face: Normocephalic, atraumatic. Chest/axilla: Normal chest wall appearance and motion. Nontender with no deformity. Cardiovascular: Regular rate and rhythm with a normal S1 and S2. No gallops, murmurs, or rubs. Normal PMI, no JVD. No pulse deficits. Respiratory: Lungs have equal breath sounds bilaterally, clear to auscultation and percussion. No rales, rhonchi or wheezes noted. No increased work of breathing, no retractions or nasal flaring. Abdomen/GI: Soft, non-tender, with normal bowel sounds. No distension or tympany. No guarding or rebound. No evidence of tenderness throughout. Skin: Warm, dry with normal turgor. Normal color with no rashes, no lesions, and no evidence of cellulitis. MS/ Extremity: Pulses equal, no cyanosis. Neurovascular intact. Full, normal range of motion. 14:47 ENT: Ear canal(s): foreign body, Ear bud tip, in the right external ear canal. Vital Signs: 14:24 BP 134 / 80; Pulse 81; Resp 17; Temp 98.1; Pulse Ox 100% ; Weight 107.5 kg; Height 5 nj1 ft. 9 in. ; Pain 10/10; 14:24 Body Mass Index 35.00 (107.50 kg, 175.26 cm) nj1 14:24 Pain Scale: Adult nj1 Procedures: 14:47 Foreign Body Removal: Ear bud tip, from the right ear canal, by using alligator clamps, ms3 Dressing: none, The patient tolerated the removal well. MDM: 14:45 Patient medically screened. ms3 14:47 Data reviewed: vital signs, nurses notes, and as a result, I will discharge patient. ms3 Counseling: I had a detailed discussion with the patient and/or guardian regarding: the historical points, exam findings, and any diagnostic results supporting the discharge/admit diagnosis, the need for outpatient follow up, to return to the emergency department if symptoms worsen or persist or if there are any questions or concerns that arise at home. ED course: Earbud tip removed without complications using alligator forceps. Patient follow-up primary care physician as needed. All questions were answered. Return precautions discussed include worsening symptoms, or any other concerns. Administered Medications: No medications were administered Disposition Summary: 03/22/23 14:46 Discharge Ordered Location: Home ms3 Condition: Stable ms3 Diagnosis - Foreign body in right ear ms3 Discharge Instructions: - Discharge Summary Sheet ms3 - Ear Foreign Body, [id number] ms3 Forms: - Medication Reconciliation Form ms3 - Thank You Letter ms3 - Antibiotic Education ms3 - Prescription Opioid Use ms3 Signatures: Michael Anna DO DO ms3 Liyah Gallego RN RN nj1
[2023-03-22 16:00] VITALS: BP 134/80; TEMP 98.1; O2SAT 100
== END 2023-03-22 15:32 | disposition home or self-care (01) ==
LOC: ER 14:04
PROC: 09C37ZZ Extirpation of Matter from Right External Auditory Canal, Via Natural or Artificial Opening (ICD-10-PCS; principal; 2023-03-22)
DX: T16.1XXA Foreign body in right ear, initial encounter (principal); M79.7 Fibromyalgia; G62.9 Polyneuropathy, unspecified; F41.9 Anxiety disorder, unspecified; F17.210 Nicotine dependence, cigarettes, uncomplicated; Z79.899 Other long term (current) drug therapy; Z88.8 Allergy status to other drugs, medicaments and biological substances
CPT/HCPCS: 99282

== ENCOUNTER 2023-07-20 16:52 | Inpatient (IN) | payer OTHER ==
--- OUTSIDE RECORDS SUMMARY | 2023-07-20 17:49 | XMS REPORT | Continuity of Care Document ---
:1970 Author Organization [facility] t Address [address] [place] [address] [place] [id number] Care Team Providers Name Role Phone Chayito Simental Primary Care Physician [phone] DARNELL AGUILERA Attending Clinician Unavailable ANTONIO ADLER Attending Clinician Unavailable RIANNA VALERA Attending Clinician Unavailable FAREED ZIMMERMAN Attending Clinician Unavailable TU OPELIKA Attending Clinician Unavailable ELVIRA VALERA Attending Clinician Unavailable MD ELISE Attending Clinician Unavailable HLODEN CHOU Attending Clinician Unavailable LAB53 Attending Clinician Unavailable MARCOS BECERRA Attending Clinician Unavailable MEGAN KOWALSKI Attending Clinician Unavailable LAB90 Attending Clinician Unavailable HANANE ARREDONDO Attending Clinician Unavailable SHERRI CUELLO Attending Clinician Unavailable HAYDE NAVA Attending Clinician Unavailable Payers Payer Name Policy Type Policy Number Effective Date Expiration Date Rachel [employer] [id number] 2022 2022 HEALTH PLAN 00:00:00 00:00:00 AETNA [facility] 9 [id number] 2022 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: 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 00:00:00 [address] KELLY MATHESW - [id number] 2022 AETNA 00:00:00 Problems Condition Condition Condition Status Onset Resolution Last Treating Co mments Source Name Details Category Date Date Treatment Clinician Date Thrombocyt Thrombocyt Disease Active K eloise osis osis 8-15 Seybold 00:00: - 00 Externa l Neutrophil Neutrophil Disease Active K eloise ia ia 8-15 Seybold 00:00: - 00 Externa l Varicose Varicose Disease Active UT veins of veins of [facility] both legs both legs 00:00: with edema with edema PAOD PAOD Disease Active UT (periphera (periphera 01-06 He alth l arterial l arterial 00:00: occlusive occlusive 00 disease) disease) Arthralgia Arthralgia Problem Active C ommon , , Spirit unspecifie unspecifie - [facility] d joint d joint [facility] Fatigue, Fatigue, Problem Active Commo n unspecifie unspecifie Sp zachary d type d [facility] History of History of Problem Active C ommon endometrio endometrio Sp zachary sis sis [facility] Hypokalemi Hypokalemi Problem Active C ommon a a [facility] Myalgia Myalgia Problem Active Common [facility] Hypomagnes Hypomagnes Problem Active C ommon emia emia [facility] IUD IUD Problem Active Common (intrauter (intrauter Sp zachary ine ine - [facility] device) in device) in [facility] Depression Depression Problem Active C ommon with with Spirit anxiety anxiety [facility] Tobacco Tobacco Problem Active Common abuse abuse Spirit counseling counseling [facility] Lower Lower Problem Active Common abdominal abdominal Spir it pain pain [facility] Diarrhea, Diarrhea, Problem Active Com mon unspecifie unspecifie Sp zachary d type d [facility] Fibromyalg Fibromyalg Problem Active C ommon ia ia [facility] Pinworms Pinworms Problem Active Commo n [facility] Muscle Muscle Problem Active Common cramps cramps [facility] Urinary Urinary Problem Active Common incontinen incontinen Sp zachary ce, ce, - [facility] unspecifie unspecifie [facility] Abdominal Abdominal Problem Active Com mon pain, pain, Spirit unspecifie unspecifie - [facility] d d abdominal abdominal Luke s location location [facility] Allergies, Adverse Reactions, Alerts Allergy Allergy Status Severity Reaction(s) Onset Inactive Treating Comm ents Source Name Type Date Date Clinician Clinopod Propensi Active Kelly ium ty to 8-15 Seybold adverse 00:00: - reaction 00 Externa s l Tobramyc Propensi Active Kelly in ty to 3-16 Seybold adverse 00:00: - reaction 00 Externa s l Meclizin Propensi Active Kelly e ty to 3-16 Seybold adverse 00:00: - reaction 00 Externa s l Prometha Propensi Active Other Other Kelly zine ty to 929 reaction( Seybold adverse 00:00: s): Other - reaction 00 Externa s l Prometha Allergy Active Other UT zine to 08-06 reaction( Health substanc 00:00: s): Other e 00 Clarithr Allergy Active Anaphylaxis Other UT omycin to 5 reaction( Health substanc 00:00: s): e 00 ireegular heart beats and high pulse Meclizin Allergy Active Anaphylaxis Other UT e to 505 reaction( Health substanc 00:00: s): e 00 caused severe dizziness /SOB/ches t heaviness Clarithr Propensi Active Anaphylaxis Other K elsey omycin ty to 5 reaction( Seybold adverse 00:00: s): - reaction 00 ireegular Exter na s heart l beats and high pulse Other reaction( s): ireegular heart beats and high pulse CLARITHR DRUG Active Anaphylaxis Uni vers OMYCIN INGREDI 5-05 ity of 00:00: [place] [facility] METRONID DRUG Active Anaphylaxis Uni vers AZOLE INGREDI 5-05 ity of HCL 00:00: [place] [facility] MECLIZIN DRUG Active Anaphylaxis Uni vers E INGREDI 5-05 ity of 00:00: [place] [facility] Metronid Allergy Active Anaphylaxis 2016-11 Other UT azole to -17 reaction( Health substanc 00:00: s): e 00 Unknown Metronid Propensi Active Anaphylaxis 2016-11 Other K elsey azole ty to 1-17 reaction( Seybold Hcl adverse 00:00: s): - reaction 00 Unknown Externa s l Penicill Allergy Active Other UT ins to 04-03 reaction( Health substanc 00:00: s): e 00 Unknown Penicill Propensi Active Other Kelly ins ty to 5-27 reaction( Seybold adverse 00:00: s): - reaction 00 UnknownOt Exter na s her l reaction( s): Unknown Predniso Propensi Active Anaphylaxis 2013-11 U T ne ty to 0-10 Health adverse 00:00: reaction 00 s Predniso Propensi Active Anaphylaxis 2013-11 K elsey ne ty to 0-10 Seybold adverse 00:00: - reaction 00 Externa s l PREDNISO DRUG Active Anaphylaxis 2013-11 Uni vers NE INGREDI 0-10 ity of 00:00: [place] [facility] Steroids Adverse Active Info Not Commo n Reaction Available Spiri t - [facility] Meclizin Adverse Active caused Common e HCl Reaction severe Spirit dizziness/[facility] Clarithr Adverse Active ireegular Comm on omycin Reaction heart beats Spi rit and high - [facility] pulse [facility] steroid Propensi Active Kelly [Other] ty to Seybold adverse - reaction Externa s l Social History Social Habit Start Date Stop Date Quantity Comments Source Gender identity Kelly gregorio - External Sexual orientation Kelly Mathews - External History of tobacco Cigarette Smoker Kelly Mathews use - External Alcohol intake 2023-06-22 2023-06-22 Ex-drinker Kelly cross 00:00:00 00:00:00 (finding) - External History of Social 2023-01-21 2023-01-21 Kelly Mathews function 00:00:00 00:00:00 - External Cigarettes smoked 2023-01-21 2023-01-21 Kelly Mathews current (pack per 00:00:00 00:00:00 - Exter nal day) - Reported Cigarette 2023-01-21 2023-01-21 Kelly Mathews pack-years 00:00:00 00:00:00 - External Tobacco use and 2023-01-21 2023-01-21 Smokeless tobacco [place] Mathews exposure 00:00:00 00:00:00 non-user - External Sex [birth year] At [birth year] Kelly lentzedy 00:00:00 00:00:00 - External Smoking Status Start Date Stop Date Source Smokes tobacco daily 2023-01-21 00:00:00 Kelly Seybold - External Medications Ordered Filled Start Stop Current Ordering Indication Dosage Frequency Signature Comments Components Source Medication Medication Date Date Medication? Clinician (SIG) Name Name Probiotic Yes Take by Kelse y Product 8-15 mouth Seybold (PROBIOTIC 13:13: - DAILY OR) 41 Externa l Semaglutide Yes 1mg Inject 1 Ke lsey -Weight 8-15 mg into Seybold Management 13:13: the skin - (Wegovy) 1 41 once a Externa MG/0.5ML week l subcutaneou s Solution Auto-inject or Dicyclomine Yes 20mg 1 tablet Ke lsey HCl 20 MG 8-15 (20 mg Seybold oral Tablet 13:13: total) by - 41 other Externa route l Phentermine Yes phentermin Kelly HCl 37.5 MG 8-15 e 37.5 mg Sey bold oral Tablet 13:13: tablet - 41 TAKE ONE Externa (1) l TABLET(S) BY MOUTH EVERY MORNING. Clindamycin Yes [id number] 300mg Take 1 Kelly HCl 300 MG 7-11 capsule Seybol d oral 00:00: (300 mg - Capsule 00 total) by Externa mouth 2 l times daily methylPREDN 2022- No Depo-Medro Kelly ISolone -04 05-27 l 40 mg/mL Seybo ld Acetate 15:24: 00:00 suspension - (DEPO-Medro 35 :00 for Externa l) 40 MG/ML injection l injection 1CC IA Suspension Albuterol 2022- No by other Angel sey Sulfate 05-04-27 route Seybold (ProAir 15:24: 00:00 - RespiClick) 35 :00 Externa 108 (90 l Base) MCG/ACT inhalation AEROSOL POWDER, BREATH ACTIVATED Clarithromy 2022- No 500mg 1 tablet Kelly dany 500 MG 05-04-27 (500 mg Seybo ld oral Tablet 15:24: 00:00 total) by - 35 :00 other Externa route l Fluconazole 2022- No fluconazol Kelly 150 MG oral 05-04 e 150 mg Sey bold Tablet 15:24: 00:00 tablet - 35 :00 TAKE ONE Externa TABLET BY l MOUTH FOR ONE TIME AND TAKE ANOTHER ONE IN 3 DAYS IF SYMPTOMS PERSISTS. linaCLOtide 2022- No 72ug 1 capsule Kelly (Linzess) 05-04 (72 mcg Seybol d 72 MCG oral 15:24: 00:00 total) - Capsule 35 :00 daily Externa l Metronidazo 2022- No metronidaz Kelly le 500 MG 05-04 ole 500 mg Sey bold oral Tablet 15:24: 00:00 tablet - 35 :00 TAKE ONE Externa (1) l TABLET(S) BY MOUTH TWICE A DAY FOR SEVEN DAYS. Ondansetron 2022- No every 6 Ke lsey (ZOFRAN) 4 05-04 (six) Seybold MG oral 15:24: 00:00 hours - TABLET 35 :00 Externa DISPERSIBLE l Phenazopyri 2022- No phenazopyr Kelly dine HCl 05-04 idine 100 Seybo ld 100 MG oral 15:24: 00:00 mg tablet - Tablet 35 :00 TAKE 1 Externa TABLET BY l MOUTH THREE TIMES DAILY WITH MEALS FOR 2 DAYS Vitamin D, 2022- No 1{tbl} Take 1 Ke lsey Ergocalcife 05-04 tablet by Se darline denney, [id number] 14:34: 00:00 mouth once - units oral 05 :00 a week Externa Capsule l Mirtazapine 2022- No 15mg 1 tablet K elsey 15 MG oral 05-04 (15 mg Seybol d Tablet 14:34: 00:00 total) by - 05 :00 other Externa route at l bedtime Probiotic Yes Take by Sammy y Product 05-04 mouth Seybold (PROBIOTIC 13:46: - DAILY OR) 25 Externa l Semaglutide Yes 1mg Inject 1 Ke lsey -Weight - mg into Seybold Management 13:46: the skin - (Wegovy) 1 25 once a Externa MG/0.5ML week l subcutaneou s Solution Auto-inject or Dicyclomine Yes 20mg 1 tablet Ke lsey HCl 20 MG 6-27 (20 mg Seybold oral Tablet 13:46: total) by - 25 other Externa route l Phentermine Yes phentermin Kelly HCl 37.5 MG 6-27 e 37.5 mg Sey bold oral Tablet 13:46: tablet - 25 TAKE ONE Externa (1) l TABLET(S) BY MOUTH EVERY MORNING. Amitriptyli Yes [id number] 100mg Take 1 Kelly ne HCl 100 6-27 tablet Seybold MG oral 00:00: (100 mg - Tablet total) by Externa mouth l nightly Escitalopra Yes [id number] 10mg Take 1 Kelly m Oxalate 6-27 tablet (10 Seyb old 10 MG oral 00:00: mg total) - Tablet 00 by mouth Externa daily l Omeprazole 2022-0 Yes [id number] 40mg Take 1 Kelly 40 MG oral 6-27 capsule Seybol d Delayed 00:00: (40 mg - Release total) by Externa Capsule mouth l daily Vitamin D, 2022- Yes [id number] 1{tbl} Take 1 Kelly Ergocalcife 6-27 tablet by Vasile bold rol, [id number] 00:00: mouth once - units oral 00 a week Externa Capsule l Meloxicam Yes [id number] 7.5mg Take 1 Kelly 7.5 MG oral 6-27 tablet Seybol d Tablet 00:00: (7.5 mg - 00 total) by Externa mouth l daily Folic Acid 2022-0 Yes [id number] 1mg Take 1 Kelly 1 MG oral 6-27 tablet (1 Seybo ld tablet 00:00: mg total) - 00 by mouth Externa daily l Metoprolol 2022-0 Yes [id number] 100mg Take 1 K elsey Succinate 6-27 tablet Seybold 100 MG oral 00:00: (100 mg - TABLET SR total) by Exter na 24 HR mouth l daily Gabapentin 2022-0 Yes [id number] 800mg Take 1 Kelly 800 MG oral 6-27 tablet Seybol d Tablet 00:00: (800 mg - 00 total) by Externa mouth 3 l times daily busPIRone 2022-0 Yes [id number] 10mg Take 1 K elsey HCl 10 MG 6-27 tablet (10 Seyb old oral Tablet 00:00: mg total) - 00 by mouth Externa daily l Mirtazapine 2022-0 Yes [id number] 15mg Take 1 Kelly 15 MG oral 6-27 tablet (15 Sey bold Tablet 00:00: mg total) - 00 by mouth Externa at bedtime l Amitriptyli 2022-0 Yes [id number] 100mg Take 1 Kelly ne HCl 100 6-27 tablet Seybold MG oral 00:00: (100 mg - Tablet 00 total) by Externa mouth l nightly Escitalopra 2022-0 Yes [id number] 10mg Take 1 Kelly m Oxalate 6-27 tablet (10 Seyb old 10 MG oral 00:00: mg total) - Tablet 00 by mouth Externa daily l Omeprazole 2022-0 Yes [id number] 40mg Take 1 Kelly 40 MG oral 6-27 capsule Seybol d Delayed 00:00: (40 mg - Release total) by Externa Capsule mouth l daily Vitamin D, 2022-0 Yes [id number] 1{tbl} Take 1 Kelly Ergocalcife 6-27 tablet by Sey bold rol, [id number] 00:00: mouth once - units oral 00 a week Externa Capsule l Meloxicam 2022-0 Yes [id number] 7.5mg Take 1 Kelly 7.5 MG oral 6-27 tablet Seybol d Tablet 00:00: (7.5 mg - 00 total) by Externa mouth l daily Folic Acid 2022-0 Yes [id number] 1mg Take 1 Kelly 1 MG oral 6-27 tablet (1 Seybo ld tablet 00:00: mg total) - 00 by mouth Externa daily l Metoprolol 2022-0 Yes [id number] 100mg Take 1 K elsey Succinate 6-27 tablet Seybold 100 MG oral 00:00: (100 mg - TABLET SR 00 total) by Exter na 24 HR mouth l daily Gabapentin 2022-0 Yes [id number] 800mg Take 1 Kelly 800 MG oral 6-27 tablet Seybol d Tablet 00:00: (800 mg - 00 total) by Externa mouth 3 l times daily busPIRone Yes [id number] 10mg Take 1 K elsey HCl 10 MG -27 tablet (10 Seyb old oral Tablet 00:00: mg total) - 00 by mouth Externa daily l Mirtazapine Yes [id number] 15mg Take 1 Kelly 15 MG oral 6-27 tablet (15 Sey bold Tablet 00:00: mg total) - 00 by mouth Externa at bedtime l Ketorolac 2022- No ketorolac Ke lsey (TORADOL) 04-29 30 mg/mL Seybo ld 30 MG/ML 13:10: 00:00 (1 mL) - injection 40 :00 injection Exter na Solution solution l 1CC IM Meloxicam 2022- No [id number] 7.5mg Take 1 Kelly 7.5 MG oral 04-29 tablet Seybo ld Tablet 00:00: 00:00 (7.5 mg - 00 :00 total) by Externa mouth l daily Pramipexole Yes .5mg Take 1 Bhavna ey Dihydrochlo 6-11 tablet Seybol d ride 0.5 MG 00:00: (0.5 mg - oral Tablet 00 total) by Ext felecia mouth at l bedtime Pramipexole 0 Yes .5mg Take 1 Bhavna ey Dihydrochlo 6-11 tablet Seybol d ride 0.5 MG 00:00: (0.5 mg - oral Tablet 00 total) by Ext felecia mouth at l bedtime Gabapentin 2022- No 600mg Take 1 Angel sey 600 MG oral -07 05- tablet Seybo ld Tablet 00:00: 00:00 (600 mg - 00 :00 total) by Externa mouth 3 l times daily Meloxicam 2022- No [id number] TAKE ONE Kelly 7.5 MG oral 03-11 (1) Seybold Tablet 00:00: 00:00 TABLET(S) - 00 :00 BY MOUTH Externa DAILY. l Amitriptyli 2022- No Kelse y ne HCl 50 5-01 11- Seybold MG oral 00:00: 00:00 - Tablet 00 :00 Externa l busPIRone 2022- No [id number] TAKE ONE Kelly HCl 10 MG -17 05-04 (1) Seybold oral Tablet 00:00: 00:00 TABLET(S) - 00 :00 BY MOUTH Externa DAILY. l Gabapentin 2022- No 800mg Take 800 K [...] DAILY OR) 48 Externa l Vitamin D, 2022-0 Yes 1{tbl} Take 1 Angel sey Ergocalcife 3-20 tablet by Vasile denney, [id number] 14:53: mouth once - units oral 55 a week Externa Capsule l DiphenhydrA 2022-0 2022- No 25mg Take 25 mg Kelly MINE 3-20 03-20 by mouth Seybold (BENADRYL) 14:50: 00:00 at bedtime - 25 MG oral 15 :00 Externa capsule l Bupropion 2022-0 2022- No 150mg Take 150 Ke lsey HCL XL 150 3-20 03-20 mg by Seybold MG OR TB24 14:49: 00:00 mouth - 38 :00 Externa l Amitriptyli 2022-0 Yes [id number] 100mg Take 1 Kelly ne HCl 100 3-20 tablet Seybold MG oral 00:00: (100 mg - Tablet 00 total) by Externa mouth l nightly busPIRone 2022-0 Yes [id number] 10mg Take 1 K elsey HCl 10 MG 3-20 tablet (10 Seyb old oral Tablet 00:00: mg total) - 00 by mouth Externa daily l Escitalopra 2022-0 Yes [id number] 10mg Take 1 Kelly m Oxalate 3-20 tablet (10 Seyb old 10 MG oral 00:00: mg total) - Tablet 00 by mouth Externa daily l Metoprolol 2022-0 Yes [id number] 100mg Take 1 K elsey Succinate 3-20 tablet Seybold 100 MG oral 00:00: (100 mg - TABLET SR 00 total) by Exter na 24 HR mouth l daily Folic Acid 2022-0 Yes [id number] 1mg Take 1 Kelly 1 MG oral 3-20 tablet (1 Seybo ld tablet 00:00: mg total) - 00 by mouth Externa daily l Gabapentin 2022-0 Yes [id number] 800mg Take 1 Kelly 800 MG oral 3-20 tablet Seybol d Tablet 00:00: (800 mg - 00 total) by Externa mouth 3 l times daily Omeprazole 2022-0 Yes [id number] 40mg Take 1 Kelly 40 MG oral 3-20 capsule Seybol d Delayed 00:00: (40 mg - Release 00 total) by Externa Capsule mouth l daily Meloxicam 2022-0 Yes [id number] 7.5mg Take 1 Kelly 7.5 MG oral 3-20 tablet Seybol d Tablet 00:00: (7.5 mg - 00 total) by Externa mouth l daily Amitriptyli 2022- No [id number] 100mg Take 1 Kelly ne HCl 100 01-25- tablet Seybol d MG oral 00:00: 00:00 (100 mg - Tablet 00 :00 total) by Externa mouth l nightly Escitalopra 2022- No [id number] 10mg Take 1 Kelly m Oxalate 01-25- tablet (10 Sey bold 10 MG oral 00:00: 00:00 mg total) - Tablet 00 :00 by mouth Externa daily l Metoprolol 2022- No [id number] 100mg Take 1 Kelly Succinate 01-25- tablet Seybold 100 MG oral 00:00: 00:00 (100 mg - TABLET SR 00 :00 total) by Exter na 24 HR mouth l daily Folic Acid 2022- No [id number] 1mg Take 1 Kelly 1 MG oral 01-25 tablet (1 Seyb old tablet 00:00: 00:00 mg total) - 00 :00 by mouth Externa daily l Gabapentin 2022- No [id number] 800mg Take 1 Kelly 800 MG oral 01-25 tablet Seybo ld Tablet 00:00: 00:00 (800 mg - 00 :00 total) by Externa mouth 3 l times daily Omeprazole 2022- No [id number] 40mg Take 1 Kelly 40 MG oral 01-25 capsule Seybo ld Delayed 00:00: 00:00 (40 mg - Release 00 :00 total) by Externa Capsule mouth l daily Gabapentin 2022- No 600mg Take 600 K elsey 600 MG oral 3-15 03-20 mg by Seybol d Tablet 00:00: 00:00 mouth 3 - 00 :00 times Externa daily l metoprolol Yes metoprolol U T succinate 3- succinate Healt h XL 10:42: ER 100 mg (Toprol-XL) 27 tablet,ext 100 MG 24 ended hr tablet release 24 hr TAKE ONE (1) TABLET(S) BY MOUTH DAILY. omeprazole 2022-0 Yes omeprazole U T (PriLOSEC) 3-06 [address] Health [address] 10:42: capsule,de capsule 27 layed release TAKE ONE (1) CAPSULE(S) BY MOUTH ONCE A DAY. metoprolol Yes metoprolol U T succinate 3-06 succinate Healt h XL 10:42: ER 100 mg (Toprol-XL) 27 tablet,ext 100 MG 24 ended hr tablet release 24 hr TAKE ONE (1) TABLET(S) BY MOUTH DAILY. omeprazole Yes omeprazole U T (PriLOSEC) 01-11 40 mg Health [address] 10:42: capsule,de capsule 27 layed release TAKE ONE (1) CAPSULE(S) BY MOUTH ONCE A DAY. amitriptyli Yes amitriptyl UT ne (Elavil) 3-06 ine 100 mg He alth 100 MG 10:42: tablet tablet 26 TAKE ONE (1) TABLET(S) BY MOUTH ONCE A DAY. buPROPion Yes 150mg Take 150 UT XL 3-06 mg by Health (Wellbutrin 10:42: mouth. XL) 150 MG 26 24 hr tablet escitalopra 0 Yes escitalopr UT m (Lexapro) 3-06 am 10 mg Heal th 10 MG 10:42: tablet tablet 26 TAKE ONE (1) TABLET(S) BY MOUTH ONCE A DAY. folic acid Yes folic acid U T (Folvite) 1 -06 1 mg Health MG tablet 10:42: tablet 26 TAKE ONE (1) TABLET(S) BY MOUTH ONCE A DAY. gabapentin Yes gabapentin U T (Neurontin) 01-11 600 mg Health 600 MG 10:42: tablet tablet 26 TAKE ONE (1) TABLET(S) BY MOUTH THREE TIMES A DAY. amitriptyli Yes amitriptyl UT ne (Elavil) 3-06 ine 100 mg He alth 100 MG 10:42: tablet tablet 26 TAKE ONE (1) TABLET(S) BY MOUTH ONCE A DAY. buPROPion 0 Yes 150mg Take 150 UT XL 3-06 mg by Health (Wellbutrin 10:42: mouth. XL) 150 MG 26 24 hr tablet escitalopra 2022-0 Yes escitalopr UT m (Lexapro) 3-06 am 10 mg Heal th 10 MG 10:42: tablet tablet 26 TAKE ONE (1) TABLET(S) BY MOUTH ONCE A DAY. folic acid 0 Yes folic acid U T (Folvite) 1 3-06 1 mg Health MG tablet 10:42: tablet 26 TAKE ONE (1) TABLET(S) BY MOUTH ONCE A DAY. gabapentin 0 Yes gabapentin U T (Neurontin) 3-06 600 mg Health 600 MG 10:42: tablet tablet 26 TAKE ONE (1) TABLET(S) BY MOUTH THREE TIMES A DAY. busPIRone 2022-0 2022- No 10mg Take 10 mg K elsey HCl 10 MG 2-18 03-20 by mouth Seybo ld oral Tablet 00:00: 00:00 daily - 00 :00 Externa l Acetaminoph 2022-0 Yes 1{tbl} [id number] Take 1 Kelly en-Codeine 2-15 [id number] tablet by Seybold #3 300-30 00:00: 3D mouth - MG oral 00 every 8 Externa Tablet hours as l needed Acetaminoph 2022-0 2022- No 1{tbl} Q.[id number] Take 1 Kelly en-Codeine 2-15 06-27 [id number] tablet by Seybold #3 300-30 00:00: 00:00 3D mouth - MG oral 00 :00 every 8 Externa Tablet hours as l needed Metronidazo 2022-0 3- No 500mg Take 500 Kelly le 500 MG 2-10 03-20 mg by Seybold oral Tablet 00:00: 00:00 mouth 2 - 00 :00 times Externa daily FOR l 7 DAYS Amitriptyli 2022-0 2022- No 100mg Take 100 Kelly ne HCl 50 1-20 03-20 mg by Seybold MG oral 00:00: 00:00 mouth - Tablet 00 :00 nightly Externa l ergocalcife 3-0 Yes [id number] Take UT rol 1-18 50,000 Health (Vitamin 00:00: Units by D2) 1.25 MG 00 mouth 1 (43348 UT) (one) time capsule per week. ergocalcife 3-0 Yes [id number] Take UT rol 1-18 50,000 Health (Vitamin 00:00: Units by D2) 1.25 MG 00 mouth 1 (95133 UT) (one) time capsule per week. Gabapentin Gabapentin 2017- Yes Gay 1 tablet Common 7-25 Millender Spirit 00:00: - [facility] Gabapentin Gabapentin 2017- Yes Gay 1 capsule Common 6-25 Millender [facility] 00:00: - [facility] Wellbutrin Wellbutrin 2017- Yes Gay 1 tablet Common XL XL 4-27 Millender in the Spirit 00:00: morning - [facility] Dicyclomine Dicyclomine Yes Gay 1 tablet Common HCl HCl Millender [facility] Benadryl Benadryl Yes Gay 1 capsule C ommon Allergy Allergy Millender as needed [facility] Omeprazole Omeprazole Yes Gay 1 capsule Common Millender [facility] ProAir ProAir Yes Gay 2 puffs as Comm on RespiClick RespiClick Millender needed [facility] Mirtazapine Mirtazapine Yes Gay 1 tablet Common Millender at bedtime Spir it [facility] Clarithromy Clarithromy Yes Gay 1 tablet Common dany dany Millender [facility] Tylenol Tylenol Yes Gay 1 tablet Comm on with with Millender as needed Spiri t Codeine #3 Codeine #3 - C HI [facility] Pristiq Pristiq Yes Gay 1 tablet Comm on Millender [facility] Naprosyn Naprosyn Yes Gay 1 tablet Co mmon Millender with food Spiri t or milk as - [facility] needed [facility] Immunizations Ordered Immunization Filled Immunization Date Status Commen ts Source Name Name Tdap- (Boostrix, 2016-12-15 Completed Kelly Matias) 00:00:00 - External Tdap- (Boostrix, 2016-12-15 Completed Kelly Matias) 00:00:00 - External Tdap- (Boostrix, 2016-12-15 Completed Kelly Matias) 00:00:00 - External Rubella 2010-02-11 Completed Kelly Mathews 00:00:00 - External Rubella 2010-02-11 Completed Kelly Seybold 00:00:00 - External Rubella 2010-02-11 Completed Kelly Torresybold 00:00:00 - External Td,absorbed PF 2004-11-08 Completed Kelly Vasile cross [facility] [place]unspecifie 00:00:00 - Ex ternal d Td,absorbed PF 2004-11-08 Completed Kelly Torresredd cross JASON,Admin,unspecifie 00:00:00 - Ex ternal d Td,absorbed PF 2004-11-08 Completed Kelly Torresredd cross [facility] [place]Admin,unspecifie 00:00:00 - Ex ternal d Vital Signs Vital Name Observation Time Observation Value Comments Source Systolic blood 2023-06-22 18:14:00 125 mm[Hg] Kelly Seybold - pressure External Diastolic blood 2023-06-22 18:14:00 74 mm[Hg] Sammy redd Seybold - pressure External Heart rate 2023-06-22 18:14:00 81 /min Kelly Ramos eybold - External Body temperature 2023-06-22 18:14:00 36.61 Millie Bhavna ey Seybold - External Respiratory rate 2023-06-22 18:14:00 16 /min Bhavna taylor Seybold - External Body height 2023-06-22 18:14:00 175.3 cm Kelly taylorbold - External Body weight 2023-06-22 18:14:00 110.678 kg Kelly taylorbold - External BMI 2023-06-22 18:14:00 36.03 kg/m2 Kelly taylorbold - External Oxygen saturation in 2023-06-22 18:14:00 99 /min Kelly Mathews - Arterial blood by External Pulse oximetry Systolic blood 2023-05-04 18:42:00 128 mm[Hg] Kelly Torresybold - pressure External Diastolic blood 2023-05-04 18:42:00 70 mm[Hg] Angelse y Seybold - pressure External Heart rate 2023-05-04 18:42:00 91 /min Kelly Ramos eybold - External Body temperature 2023-05-04 18:42:00 36.39 Millie Bhavna ey Seybold - External Respiratory rate 2023-05-04 18:42:00 15 /min Bhavna ey Seybold - External Body height 2023-05-04 18:42:00 175.3 cm Kelly Ramos eybold - External Body weight 2023-05-04 18:42:00 107.956 kg Kelly Ramos eybold - External BMI 2023-05-04 18:42:00 35.15 kg/m2 Kelly Ramos eybold - External Systolic blood 2023-01-25 19:43:00 102 mm[Hg] Kelly Seybold - pressure External Diastolic blood 2023-01-25 19:43:00 66 mm[Hg] Sammy y Seybold - pressure External Heart rate 2023-01-25 19:43:00 81 /min Kelly Ramos eybold - External Body temperature 2023-01-25 19:43:00 36.67 Millie Bhavna ey Seybold - External Respiratory rate 2023-01-25 19:43:00 15 /min Bhavna taylor Seybold - External Body height 2023-01-25 19:43:00 175.3 cm Kelly Ramos eybold - External Body weight 2023-01-25 19:43:00 104.781 kg Kelly Ramos eybold - External BMI 2023-01-25 19:43:00 34.11 kg/m2 Kelly Ramos eybold - External Procedures This patient has no known procedures. Encounters Start End Encounter Admission Attending Care Care Encounter Source Date/Time Date/Time Type Type Clinicians Facility Department ID 2023-06-08 Outpatient [facility] [id number] [place] 10:44:45 [id number] [facility] 2023-05-17 Outpatient [facility] [id number] [place] 08:00:11 [id number] [facility] 2023-05-07 Outpatient [facility] [id number] [place] 07:33:32 [id number] [facility] 2023-04-19 Outpatient [facility] [id number] [place] 16:27:00 [id number] [facility] 2023-04-08 Outpatient [facility] [id number] [place] 07:26:38 [id number] [facility] 2023-02-11 Outpatient [facility] [id number] Common 10:57:00 [id number] [facility] 2023-02-08 Outpatient [facility] [id number] [place] 12:33:20 [id number] [facility] 2023-02-05 Outpatient [facility] [id number] [place] 10:42:09 [id number] [facility] 2023-02-04 Outpatient [facility] [id number] [place] 12:13:56 [id number] [facility] 2023-02-01 Outpatient [facility] [id number] Common 10:49:00 [id number] [facility] 2023-01-25 Outpatient [facility] [id number] [place] 14:14:33 [id number] [facility] 2023-01-11 Outpatient [facility] [id number] [place] 09:13:23 [id number] [facility] 2023-01-07 Outpatient [facility] [id number] [place] 14:08:56 [id number] [facility] 2022-12-31 Outpatient [facility] [id number] [place] 16:58:36 [id number] [facility] 2022-12-28 Outpatient [facility] [id number] [place] 13:00:57 [id number] [facility] 2022-03-20 Outpatient ALE, [facility] [id number] [place] 13:13:47 DARNELL [id number] [facility] 2023-08-19 2023-08-19 Outpatient KELLY ADLER [id number] Kelly 14:45:00 14:45:00 ANTONIO Seybol elodia 2023-08-10 2023-08-10 Outpatient KELLY ADLER [id number] Kelly 14:00:00 14:00:00 ANTONIO Seybol d 2023-08-06 2023-08-06 Outpatient RIANNA VALERA [id number] Kelly 14:40:00 14:40:00 Seybol d 2023-07-27 2023-07-27 Outpatient ALE, [facility] [id number] [place] 09:00:00 09:00:00 DARNELL [facility] 2023-07-22 2023-07-22 Outpatient KELLY ZIMMERMAN [id number] Kelly 14:40:00 14:40:00 FAREED Seybol d 2023-07-20 2023-07-20 Outpatient CLAYTON MAE [id number] Kelly 15:00:00 15:00:00 Seybol d 2023-07-20 2023-07-20 Outpatient KELLY VALERA [id number] Kelly 00:00:00 00:00:00 ELVIRA Seybol d 2023-07-06 2023-07-06 Outpatient KELLY ZIMMERMAN [id number] Kelly 14:25:00 14:25:00 FAREED Seybol d 2023-07-06 2023-07-06 Outpatient KELLY ZIMMERMAN [id number] Kelly 00:00:00 00:00:00 FAREED Seybol d 2023-07-05 2023-07-05 Outpatient DIVYALUCIABritni SPARKS [id number] Kelly 00:00:00 00:00:00 MD CAROLE Seybol d 2023-07-02 2023-07-02 Outpatient KELLY VALERA [id number] Kelly 00:00:00 00:00:00 ELVIRA Seybol d 2023-06-23 2023-06-23 Outpatient HOLDEN CHOU [id number] Kelly 00:00:00 00:00:00 Seybol d 2023-06-22 2023-06-22 Outpatient LAB53 KELLY SPARKS [id number] Kelly 14:15:00 14:15:00 Seybol d 2023-06-22 2023-06-22 Outpatient HOLDEN CHOU [id number] Kelly 13:20:00 13:20:00 Seybol d 2023-06-02 2023-06-02 Outpatient KELLY SPARKS [id number] Kelly 00:00:00 00:00:00 Seybol d 2023-06-01 2023-06-01 Outpatient KELLY VALERA [id number] Kelly 00:00:00 00:00:00 ELVIRA Seybol d 2023-05-25 2023-05-25 Outpatient KELLY VALERA [id number] Kelly 00:00:00 00:00:00 ELVIRA Seybol d 2023-05-18 2023-05-18 Outpatient KELLY BECERRA [id number] Kelly 00:00:00 00:00:00 MARCOS Seybol d 2023-05-12 2023-05-12 Outpatient MEGAN KOWALSKI KELLY SPARKS [id number] Kelly 14:40:00 14:40:00 Seybol d 2023-05-06 2023-05-06 Outpatient KELLY VALERA [id number] Kelly 00:00:00 00:00:00 ELVIRA Seybol d 2023-05-05 2023-05-05 Outpatient KELLY VALERA [id number] Kelly 00:00:00 00:00:00 ELVIRA Seybol d 2023-05-04 2023-05-04 Outpatient LAB90 KELLY SPARKS [id number] Kelly 14:55:00 14:55:00 Seybol d 2023-05-04 2023-05-04 Outpatient KELLY BECERRA [id number] Kelly 14:00:00 14:00:00 MARCOS Seybol d 2023-04-30 2023-04-30 Outpatient MORAIMA RIANNARedd SPARKS [id number] Kelly 14:40:00 14:40:00 Seybol d 2023-04-30 2023-04-30 Outpatient KELLY ZIMMERMAN [id number] Kelly 14:10:00 14:10:00 FAREED Seybol d 2023-04-29 2023-04-29 Outpatient KELLY VALERA [id number] Kelly 00:00:00 00:00:00 ELVIRA Seybol d 2023-04-23 2023-04-23 Outpatient KELLY ARREDONDO [id number] Kelly 15:00:00 15:00:00 HANANE Seybol d 2023-04-21 2023-04-21 Outpatient LAB90 KELLY SPARKS [id number] Kelly 15:10:00 15:10:00 Seybol d 2023-04-21 2023-04-21 Outpatient KELLY ARREDONDO [id number] Kelly 00:00:00 00:00:00 HANANE Seybol d 2023-04-14 2023-04-14 Outpatient KELLY VALERA [id number] Kelly 00:00:00 00:00:00 ELVIRA Seybol d 2023-04-13 2023-04-13 Outpatient LAB90 KELLY SPARKS [id number] Kelly 08:35:00 08:35:00 Seybol d 2023-04-13 2023-04-13 Outpatient KELLY VALERA [id number] Kelly 00:00:00 00:00:00 ELVIRA Seybol d 2023-04-12 2023-04-12 Office ALE [facility] [id number] [place] 10:00:00 10:00:00 Visit DARNELL ARNOLD [id number] Shane LOUIE [id number] [facility] [id number] 2023-04-12 2023-04-12 Outpatient [facility] [id number] [place] 09:00:00 09:00:00 Health 2023-04-06 2023-04-06 Outpatient KELLY VALERA [id number] Kelly 00:00:00 00:00:00 ELVIRA Seybol d 2023-04-06 2023-04-06 Outpatient KELLY CUELLO [id number] Kelly 00:00:00 00:00:00 AHMED Seybol d 2023-03-31 2023-03-31 Outpatient KELLY VALERA [id number] Kelly 00:00:00 00:00:00 ELVIRA Seybol d 2023-03-24 2023-03-24 Outpatient KELLY VALERA [id number] Kelly 00:00:00 00:00:00 ELVIRA Seybol d 2023-03-12 2023-03-12 Outpatient KELLY VALERA [id number] Kelly 00:00:00 00:00:00 ELVIRA Seybol d 2023-03-10 2023-03-10 Outpatient KELLY ARREDONDO [id number] Kelly 00:00:00 00:00:00 HANANE Seybol d 2023-03-08 2023-03-08 Outpatient KELLY ARREDONDO [id number] Kelly 00:00:00 00:00:00 HANANE Seybol d 2023-03-06 2023-03-06 Outpatient KELLY VALERA [id number] Kelly 00:00:00 00:00:00 ELVIRA Seybol d 2023-02-22 2023-02-22 Outpatient KELLY VALERA [id number] Kelly 00:00:00 00:00:00 ELVIRA Seybol d 2023-02-19 2023-02-19 Outpatient KELLY VALERA [id number] Kelly 00:00:00 00:00:00 ELVIRA Seybol d 2023-02-15 2023-02-15 Outpatient KELLY VALERA [id number] Kelly 00:00:00 00:00:00 ELVIRA Seybol d 2023-02-09 2023-02-09 Outpatient KELLY VALERA [id number] Kelly 00:00:00 00:00:00 ELVIRA Seybol d 2023-02-09 2023-02-09 Outpatient KELLY VALERA [id number] Kelly 00:00:00 00:00:00 ELVIRA Seybol d 2023-02-08 2023-02-08 Outpatient [facility] [id number] [place] 09:45:00 09:45:00 [facility] 2023-02-08 2023-02-08 Outpatient [facility] [id number] [place] 09:00:00 09:00:00 [facility] 2023-02-08 2023-02-08 Outpatient KELLY VALERA [id number] Kelly 00:00:00 00:00:00 ELVIRA Seybol d 2023-02-08 2023-02-08 Outpatient KELLY VALERA [id number] Kelly 00:00:00 00:00:00 ELVIRA Seybol d 2023-01-27 2023-01-27 Outpatient KELLY VALERA [id number] Kelly 11:45:00 11:45:00 ELVIRA Seybol d 2023-01-26 2023-01-26 Outpatient KELLY VALERA [id number] Kelly 00:00:00 00:00:00 ELVIRA Seybol d 2023-01-25 2023-01-25 Outpatient KELLY VALERA [id number] Kelly 14:30:00 14:30:00 ELVIRA Seybol d 2023-01-25 2023-01-25 Outpatient KELLY VALERA [id number] Kelly 00:00:00 00:00:00 ELVIRA Seybol d 2023-01-25 2023-01-25 Outpatient KELLY VALERA [id number] Kelly 00:00:00 00:00:00 ELVIRA Seybol elodia 2023-01-21 2023-01-21 Outpatient KELLY VALERA [id number] Kelly 00:00:00 00:00:00 ELVIRA Seybol d 2023-01-11 2023-01-11 Office [facility] [id number] [place] 09:15:00 09:15:00 Visit DARNELL ARNOLD [id number] Shane LOUIE [id number] [facility] [id number] 2021-02-21 2021-02-21 Outpatient Emilee N[facility] [id number] [facility] 12:10:00 11:45:22 [facility] 2021-01-31 2021-01-31 Outpatient Emilee NAVA [facility] [id number] [facility] 12:10:00 12:09:15 [facility] 2019-04-13 2019-04-13 Outpatient Annamarie De Lunat [id number] Common 16:39:00 16:39:00 [facility] [address] [facility] 2018-07-08 2018-07-08 Outpatient Annamarie Sprague [id number] Common 08:43:00 08:43:00 [facility] [address] [facility] 2018-06-01 2018-06-01 Outpatient Brazeddie [facility] [id number] Common 12:39:00 12:39:00 [facility] [address] [facility] 2018-05-02 2018-05-02 Outpatient [facility] [id number] Common 11:12:00 11:12:00 [facility] [address] [facility] 2018-04-07 2018-04-07 [facility] [id number] Common 10:51:00 10:51:00 t [facility] [address] [facility] 2018-04-05 2018-04-05 Outpatient [facility] [id number] Common 11:14:00 11:14:00 t [facility] [address] [facility] 2018-04-01 2018-04-01 Outpatient [facility] [id number] Common 13:00:00 13:00:00 [facility] Results This patient has no known results. Notes Date/Time Note Provider Source 2023-06-22 13:13:06-00:00 Formatting of this note is d ifferent from the original. [facility] Chief Complaint Patient presents with Hematology Consult Leukocytosis, unspecified type; referred by Elvira Harris MD Laura E Rivera, CMA II
[2023-07-20 17:53] LABS: Absolute Lymphocytes (CBC) 3.2 K/uL (0.7-4.9); Hematocrit 40.5 % (36.0-45.0); MCV 85.4 fL (80-100); MPV 8.9 fL (7.6-11.3); Platelets 633 thou/uL (152-406); RBC Red Blood Cell Count 4.74 M/uL (3.86-4.86)
[2023-07-20 17:56] LABS: Protime INR 1.06
--- NOTE | 2023-07-20 18:05 | RAD REPORT ---
EXAM DESCRIPTION: RAD - Tib Fib Right - 07/20/2023 5:57 pm CLINICAL HISTORY: ANIMAL BITE COMPARISON: No comparisons TECHNIQUE: Right tibia and fibula, 2 views. FINDINGS: No fracture is identified. There is no dislocation or periosteal reaction noted. No acute or suspicious bony finding. Enthesopathy at the Achillis tendon attachment. No foreign body or other soft tissue abnormality. IMPRESSION: Negative right tibia & fibula examination.
[2023-07-20 18:07] LABS: Albumin 3.7 g/dL (3.4-5.0); Bilirubin Total 0.3 mg/dL (0.2-1.0); Potassium 3.7 mEq/L (3.5-5.1); Protein, Total 7.5 g/dL (6.4-8.2)
[2023-07-20] MEDS ORDERED: AMPICILLIN/SULBACT 1.5GM VIAL ONE (18:17)
[2023-07-20] MEDS ORDERED: NA CHLORIDE 0.9% 100 ML ONE (18:18)
--- NOTE | 2023-07-20 19:34 | RAD REPORT ---
EXAM DESCRIPTION: US - Extremity Venous Uni Ltd - 07/20/2023 6:42 pm CLINICAL HISTORY: Pain, swelling COMPARISON: None. TECHNIQUE: Real-time sonographic evaluation of the right lower extremity deep venous system was perf ormed. FINDINGS: Normal compressibility, flow augmentation, phasic flow and spontaneous flow is identified in the right lower extremity deep venous system. No intraluminal filling defects seen. IMPRESSION: No DVT in the right lower extremity.
--- NOTE | 2023-07-20 20:40 | ER ---
Nurse's Notes [facility] Name: Rajni Jasso Age: 52 yrs Sex: Female : 1970 Arrival Date: 07/20/2023 Time: 16:52 Bed 14 Private MD: Elvira Mazariegos Diagnosis: Cellulitis of right lower limb-Failed outpatient therapy s/p dog bite Presentation: 07/20 16:57 Chief complaint: Patient states: she was evaluated here last week for a dog bite, and ap3 her leg has since gotten worse. patient complains of increased swelling and pain to the right leg. Coronavirus screen: At this time, the client does not indicate any symptoms associated with coronavirus-19. Ebola Screen: No symptoms or risks identified at this time. Initial Sepsis Screen: Does the patient meet any 2 criteria? No. Patient's initial sepsis screen is negative. Does the patient have a suspected source of infection? Yes: Skin breakdown/wound. Risk Assessment: Do you want to hurt yourself or someone else? Patient reports no desire to harm self or others. Onset of symptoms was July 16, 2023. 16:57 Method Of Arrival: Ambulatory ap3 16:57 Acuity: SYLVAIN 3 ap3 Triage Assessment: 17:02 General: Appears in no apparent distress. Behavior is calm, cooperative, appropriate ap3 for age. Pain: Complains of pain in right leg and right calf and lateral aspect of right foot. Neuro: Level of Consciousness is awake, alert, obeys commands, Oriented to person, place, time, situation, Appropriate for age. Cardiovascular: Patient's skin is warm and dry. Respiratory: Airway is patent Respiratory effort is even, unlabored, Respiratory pattern is regular, symmetrical. Musculoskeletal: Swelling present in right foot and right leg. 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 LMP N/A - Post-menopause bp Historical: - Allergies: 16:59 Clarithromycin; ap3 16:59 Flagyl; constipation, chest pains; ap3 16:59 Meclizine; ap3 16:59 steroids; ap3 - Home Meds: 16:59 amitriptyline 100 mg Oral tablet 1 tab every day at bedtime [Active]; buspirone 10 mg ap3 Oral tablet 1 tab daily [Active]; escitalopram oxalate 10 mg Oral tablet 1 tab daily [Active]; metoprolol succinate 100 mg Oral Tablet, Extended Release 24 hr 1 tab daily [Active]; omeprazole 40 mg Oral capsule,delayed release (e.c.) 1 cap daily [Active]; meloxicam 7.5 mg Oral tablet 1 tab daily [Active]; gabapentin 800 mg Oral tablet 1 tab 3 times per day [Active]; folic acid 1 mg Oral tablet 1 tab daily [Active]; Probiotic oral [Active]; Vitamin D Oral 02856 unit daily [Active]; - PMHx: 16:59 Anxiety; Fibromyalgia; neuropathy; Tachycardia; ap3 - Immunization history:: Client reports receiving the 2nd dose of the Covid vaccine, Last tetanus immunization: July 16, 2023. - Social history:: Smoking status: Patient reports the use of cigarette tobacco products, smokes one pack cigarettes per day. Screenin:02 [facility] ED Fall Risk Assessment (Adult) History of falling in the last 3 months, ap3 including since admission No falls in past 3 months (0 pts). Abuse screen: Denies threats or abuse. Nutritional screening: No deficits noted. Tuberculosis screening: No symptoms or risk factors identified. Assessment: 17:05 General: Appears in no apparent distress. comfortable, Behavior is calm, cooperative. rs5 17:05 Pain: Complains of pain in right calf and right ankle Pain does not radiate. Pain rs5 currently is 5 out of 10 on a pain scale. Quality of pain is described as aching, Pain began one week ago. Neuro: Level of Consciousness is awake, alert, obeys commands, Oriented to person, place, time, situation. Cardiovascular: Rhythm is regular. Respiratory: Airway is patent Respiratory effort is even, unlabored, Respiratory pattern is regular, symmetrical. GI: Abdomen is round non-distended, Bowel sounds present X 4 quads. 17:05 : No signs and/or symptoms were reported regarding the genitourinary system. rs5 17:05 EENT: No signs and/or symptoms were reported regarding the EENT system. Derm: Skin is rs5 dry, Skin is normal, Skin temperature is warm Wound noted Other: dog bite puncture wound noted to right calf and right ankle. No signs of drainage, or infection noted to dog bite puncture wounds. Swelling noted to right foot, no redness, bruising. Musculoskeletal: Range of motion: limited in right lower extremity. 18:00 Reassessment: Patient and/or family updated on plan of care and expected duration. Pain rs5 level reassessed. Patient is alert, oriented x 3, equal unlabored respirations, skin warm/dry/pink. Ultrasound to bedside. 18:40 Reassessment: Patient and/or family updated on plan of care and expected duration. Pain rs5 level reassessed. Patient is alert, oriented x 3, equal unlabored respirations, skin warm/dry/pink. [place] and juice provided per pt request. Vital Signs: 16:57 BP 122 / 64; Pulse 84; Resp 18; Temp 98.7; Pulse Ox 100% ; Weight 110.68 kg; Pain 0/10; ap3 17:00 BP 114 / 64; Pulse 76; Resp 17; Temp 98.1; Pulse Ox 99% on R/A; rs5 18:10 BP 112 / 58; Pulse 86; Resp 17; Pulse Ox 99% on R/A; rs5 18:33 BP 111 / 64; Pulse 83; Resp 17; Pulse Ox 99% on R/A; rs5 19:35 BP 115 / 66; Pulse 81; Resp 16; Pulse Ox 100% ; bp 16:57 Pain Scale: Adult ap3 ED Course: 16:54 Patient arrived in ED. mr 16:54 Raina Sanabria FNP-C is [facility]. snw 16:54 Sheldon Hitchcock MD is Attending Physician. snw 16:54 Elvira Mazariegos is Private Physician. mr 16:59 Triage completed. ap3 17:03 Arm band placed on right wrist. ap3 17:03 Patient has correct armband on for positive identification. Bed in low position. Call rs5 light in reach. Side rails up X2. Adult w/ patient. 17:05 González Gonsalves, ABHILASH is Primary Nurse. rs5 17:39 Inserted saline lock: 20 gauge in right antecubital area, using aseptic technique. aa5 17:39 Initial lab(s) drawn, by me, sent to lab. First set of blood cultures drawn by me. aa5 17:59 Tib Fib Right XRAY In Process Unspecified. EDMS 18:44 US Extremity Venous Unilateral Ltd In Process Unspecified. EDMS 20:39 Clive Jaimes MD is Hospitalizing Provider. snw 21:45 No provider procedures requiring assistance completed. Patient admitted, IV remains in bp place. 21:52 Provided Education on: N/A. bp Administered Medications: 18:20 Drug: Ampicillin-Sulbactam Sodium IVPB 1.5 grams Route: IVPB; Infused Over: 30 mins; rs5 Site: right antecubital; 18:40 Follow up: Response: No adverse reaction rs5 20:58 Follow up: IV Status: Completed infusion; IV Intake: 100ml bp 21:03 Drug: HYDROcodone-acetaminophen PO 5 mg-325 mg 1 tabs Route: PO; bp 21:46 Follow up: Response: No adverse reaction bp Medication: 21:52 VIS not applicable for this client. bp Intake: 20:58 IV: 100ml; Total: 100ml. bp Outcome: 20:39 Decision to Hospitalize by Provider. snw 21:46 Condition: stable bp 21:46 Instructed on the need for admit. 21:52 Admitted to Med/surg accompanied by tech, via wheelchair, room 214, with chart, Report bp called to BASSEM HUNG 22:22 Patient left the ED. bp Signatures: Dispatcher [employer] EDMS Raina Sanabria, PEE N[employer] SERVICES ASSOCIATE-Tess DaviMary Grace mr WallerNohelia, RN RN aa5 Anand Plunkett RN RN bp Kaylah Leonardo RN RN ap3 González Gonsalves, RN RN rs5 Corrections: (The following items were deleted from the chart) 17:22 17:05 GI: rs5 rs5 18:33 17:15 BP 114 / 64; Pulse 76bpm; Resp 17bpm; Pulse Ox 99% RA; Temp 98.1F; rs5 rs5 18:47 18:46 Reassessment: Patient and/or family updated on plan of care and expected rs5 duration. Pain level reassessed. Patient is alert, oriented x 3, equal unlabored respirations, skin warm/dry/pink. [place] and juice provided per pt request. rs5
--- NOTE | 2023-07-20 20:40 | EDPHYS ---
Physician Documentation [facility] Name: Rajni Jasso Age: 52 yrs Sex: Female : 1970 Arrival Date: 07/20/2023 Time: 16:52 Bed 14 Private MD: Elvira Mazariegos ED Physician Sheldon Hitchcock HPI: 07/20 16:59 This 52 yrs old Female presents to ER via Unassigned with complaints of Infected Foot. snw 16:59 Onset: The symptoms/episode began/occurred Pt was bitten by a dog one week ago, has snw been taking Augmentin 875mg BID, right foot is edematous with mild surrounding cellulitis. Associated signs and symptoms: Pertinent positives: The patient does not have any pertinent positive signs or symptoms associated with pediatric illness. The patient has not experienced similar symptoms in the past. pt sent per [facility] PCP for admission. EMPLOYMENT EDUCATIONAL COORD: 21:52 LMP N/A - Post-menopause bp Historical: - Allergies: 16:59 Clarithromycin; ap3 16:59 Flagyl; constipation, chest pains; ap3 16:59 Meclizine; ap3 16:59 steroids; ap3 - Home Meds: 16:59 amitriptyline 100 mg Oral tablet 1 tab every day at bedtime [Active]; buspirone 10 mg ap3 Oral tablet 1 tab daily [Active]; escitalopram oxalate 10 mg Oral tablet 1 tab daily [Active]; metoprolol succinate 100 mg Oral Tablet, Extended Release 24 hr 1 tab daily [Active]; omeprazole 40 mg Oral capsule,delayed release (e.c.) 1 cap daily [Active]; meloxicam 7.5 mg Oral tablet 1 tab daily [Active]; gabapentin 800 mg Oral tablet 1 tab 3 times per day [Active]; folic acid 1 mg Oral tablet 1 tab daily [Active]; Probiotic oral [Active]; Vitamin D Oral 01133 unit daily [Active]; - PMHx: 16:59 Anxiety; Fibromyalgia; neuropathy; Tachycardia; ap3 - Immunization history:: Client reports receiving the 2nd dose of the Covid vaccine, Last tetanus immunization: July 16, 2023. - Social history:: Smoking status: Patient reports the use of cigarette tobacco products, smokes one pack cigarettes per day. ROS: 16:58 Constitutional: Negative for fever, chills, and weight loss, Eyes: Negative for injury, snw pain, redness, and discharge, ENT: Negative for injury, pain, and discharge, Neck: Negative for injury, pain, and swelling, Cardiovascular: Negative for chest pain, palpitations, and edema, Respiratory: Negative for shortness of breath, cough, wheezing, and pleuritic chest pain, Abdomen/GI: Negative for abdominal pain, nausea, vomiting, diarrhea, and constipation, Back: Negative for injury and pain, : Negative for injury, bleeding, discharge, and swelling, MS/Extremity: Negative for injury and deformity, Neuro: Negative for headache, weakness, numbness, tingling, and seizure, Psych: Negative for depression, anxiety, suicide ideation, homicidal ideation, and hallucinations. 16:58 Skin: Positive for cellulitis, swelling, of the right calf and lateral aspect of right foot. Exam: 16:58 Constitutional: This is a well developed, well nourished patient who is awake, alert, snw and in no acute distress. Head/Face: Normocephalic, atraumatic. Eyes: Pupils equal round and reactive to light, extra-ocular motions intact. Lids and lashes normal. Conjunctiva and sclera are non-icteric and not injected. Cornea within normal limits. Periorbital areas with no swelling, redness, or edema. ENT: Nares patent. No nasal discharge, no septal abnormalities noted. Tympanic membranes are normal and external auditory canals are clear. Oropharynx with no redness, swelling, or masses, exudates, or evidence of obstruction, uvula midline. Mucous membranes moist. Neck: Trachea midline, no thyromegaly or masses palpated, and no cervical lymphadenopathy. Supple, full range of motion without nuchal rigidity, or vertebral point tenderness. No Meningismus. Chest/axilla: Normal chest wall appearance and motion. Nontender with no deformity. No lesions are appreciated. Cardiovascular: Regular rate and rhythm with a normal S1 and S2. No gallops, murmurs, or rubs. Normal PMI, no JVD. No pulse deficits. Respiratory: Lungs have equal breath sounds bilaterally, clear to auscultation and percussion. No rales, rhonchi or wheezes noted. No increased work of breathing, no retractions or nasal flaring. Abdomen/GI: Soft, non-tender, with normal bowel sounds. No distension or tympany. No guarding or rebound. No evidence of tenderness throughout. Back: No spinal tenderness. No costovertebral tenderness. Full range of motion. Neuro: Awake and alert, GCS 15, oriented to person, place, time, and situation. Cranial nerves II-XII grossly intact. Motor strength 5/5 in all extremities. Sensory grossly intact. Cerebellar exam normal. Normal gait. Psych: Awake, alert, with orientation to person, place and time. Behavior, mood, and affect are within normal limits. 16:58 MS/ Extremity: Pulses equal, no cyanosis. Neurovascular intact. Full, normal range of motion. 16:58 Skin: Appearance: normal except for affected area, swelling, noted on the lateral aspect of right foot and right calf, that are moderate, cellulitis, that is moderate. Vital Signs: 16:57 BP 122 / 64; Pulse 84; Resp 18; Temp 98.7; Pulse Ox 100% ; Weight 110.68 kg; Pain 0/10; ap3 17:00 BP 114 / 64; Pulse 76; Resp 17; Temp 98.1; Pulse Ox 99% on R/A; rs5 18:10 BP 112 / 58; Pulse 86; Resp 17; Pulse Ox 99% on R/A; rs5 18:33 BP 111 / 64; Pulse 83; Resp 17; Pulse Ox 99% on R/A; rs5 19:35 BP 115 / 66; Pulse 81; Resp 16; Pulse Ox 100% ; bp 16:57 Pain Scale: Adult ap3 MDM: 16:54 Patient medically screened. snw 17:02 Differential diagnosis: bacterial infection, pneumonia UTI. Data reviewed: vital signs, snw nurses notes, lab test result(s), radiologic studies. Consideration of Admission/Observation Escalation of care including admission/observation considered. will probably need surgical debridement. I considered the following discharge prescriptions or medication management in the emergency department Medications were administered in the Emergency Department. See MAR. Counseling: I had a detailed discussion with the patient and/or guardian regarding the historical points, exam findings, and any diagnostic results supporting the discharge/admit diagnosis, lab results, radiology results. 20:40 Management of patient was discussed with the following: Hospitalist: Harris Garcia. snw 07/20 17:27 Order name: Blood Culture Adult (2) snw 07/20 17:27 Order name: CBC with Diff; Complete Time: 18:01 snw 07/20 17:27 Order name: CMP; Complete Time: 18:08 snw 07/20 17:27 Order name: Lactate w/ 2H reflex if indic.; Complete Time: 18:13 snw 07/20 17:27 Order name: Protime (+inr); Complete Time: 17:59 snw 07/20 17:27 Order name: Ptt, Activated; Complete Time: 17:59 snw 12 18:35 Order name: Glucose, Ancillary Testing; Complete Time: 18:36 EDMS 07/20 17:27 Order name: Tib Fib Right XRAY; Complete Time: 18:08 snw 09 17:27 Order name: US Extremity Venous Unilateral Ltd; Complete Time: 19:38 snw 07/20 17:27 Order name: EKG; Complete Time: 17:27 snw 07/20 17:27 Order name: Accucheck; Complete Time: 18:21 snw 07/20 17:27 Order name: Cardiac monitoring; Complete Time: 17:42 snw 07/20 17:27 Order name: EKG - Nurse/Tech; Complete Time: 17:42 snw 07/20 17:27 Order name: IV Saline Lock - Large Bore; Complete Time: 17:42 snw 07/20 17:27 Order name: Labs collected and sent; Complete Time: 17:42 snw 07/20 17:27 Order name: O2 Per Protocol; Complete Time: 17:42 snw 07/20 17:27 Order name: O2 Sat Monitoring; Complete Time: 17:42 snw 07/20 17:27 Order name: Vital Signs; Complete Time: 17:42 snw EC:45 Rate is 77 beats/min. Rhythm is regular. QRS [place] is Normal. [place] interval is normal. QRS snw interval is normal. QT interval is normal. Clinical impression: NSR w/ Non-specific ST/T Changes. Administered Medications: 18:20 Drug: Ampicillin-Sulbactam Sodium IVPB 1.5 grams Route: IVPB; Infused Over: 30 mins; rs5 Site: right antecubital; 18:40 Follow up: Response: No adverse reaction rs5 20:58 Follow up: IV Status: Completed infusion; IV Intake: 100ml bp 21:03 Drug: HYDROcodone-acetaminophen PO 5 mg-325 mg 1 tabs Route: PO; bp 21:46 Follow up: Response: No adverse reaction bp Disposition Summary: 07/20/23 20:39 Hospitalization Ordered Hospitalization Status: Inpatient Admission snw Provider: Clive Jaimes Location: Telemetry/MedSurg (Inpatient) snw Condition: Stable snw Problem: an ongoing problem snw Symptoms: are unchanged snw Bed/Room Type: Standard snw Room Assignment: 214(07/20/23 21:33) mw Diagnosis - Cellulitis of right lower limb - Failed outpatient therapy s/p dog bite snw Forms: - Medication Reconciliation Form snw - SBAR form snw - Leadership Thank You Letter snw Signatures: Dispatcher [employer] Tatyana Bhatti RN RN mw Raina Sanabria, ENTRY LEVEL ACCOUNTING CLERK-C ENTRY LEVEL ACCOUNTING CLERK-Csnw Anand Plunkett RN RN bp Prokisch, Amanda, RN RN ap3 González Gonsalves RN RN rs5 Corrections: (The following items were deleted from the chart) 21:33 20:39 snw mw
[2023-07-20] MEDS ORDERED: HYDROCODONE/APAP 5/325 MG TAB ONE (21:12)
--- NOTE | 2023-07-20 21:33 | P.HP ---
Certification for Inpatient Patient admitted to: Inpatient With expected LOS: >2 Midnights Patient will require the following post-hospital care: None Practitioner: I am a practitioner with admitting privileges, knowledge of patient current condition, hospital course, and medical plan of care. Services: Services provided to patient in accordance with Admission requirements found in Title 42 Section 412.3 of the Code of Federal Regulations Patient History Date of Service: 07/20/23 Reason for admission: RLE cellulitis History of Present Illness: 52-year-old female was bitten by dog on her right leg on 07/15/2023. She came to the emergency department on 07/16/2023 and was evaluated she was given tetanus shot and a prescription for Augmentin for 10 days. She has been taking Augmentin at home but had worsening pain and swelling to the right lower extremity including the proximal calf area and ankle area. She was evaluated in the emergency department her labs were significant for leukocytosis with blood cell 14.0 lactate 1.2 negative for DVT in the right lower extremity tib-fib x- ray negative for acute findings. ED provider wishes to admit for right lower extremity cellulitis/dog bite/failed outpatient admit. Allergies metronidazole [From Flagyl] Allergy (Unverified 09/24/17 15:51) Unknown Penicillins Allergy (Unverified 04/03/17 18:39) Unknown steroids Allergy (Uncoded 04/05/17 12:44) Unknown Home Medications: Hydrocodone 7.5/APAP 325 [Trinity 7.5/325 mg*] 1 tab PO Q4HP PRN #20 tab 11/29/13 - Past Medical/Surgical History Diabetic: No -: Sinus tachycardia -: Fibromyalgia -: Neuropathy -: Cholecystectomy Psychosocial/ Personal History: Lives at home with family - Family History Mother -: Cancer Father -: Lung disease - Social History Smoking Status: Current every day smoker Counseled patient to stop smoking for: less than 10 minutes Smoking therapy provided: No Alcohol use: Yes CD- Drugs: No Caffeine use: Yes Place of Residence: Home Review of Systems 10-point ROS is otherwise unremarkable Musculoskeletal: Leg Pain, As per HPI Physical Examination - Physical Exam General: Alert, In no apparent distress, Oriented x3 HEENT: Atraumatic, PERRLA, Mucous membr. moist/pink, EOMI, Sclerae nonicteric Neck: Supple, 2+ carotid pulse no bruit, No LAD, Without JVD or thyroid abnormality Respiratory: Clear to auscultation bilaterally, Normal air movement Cardiovascular: Regular rate/rhythm, Normal S1 S2 Gastrointestinal: Normal bowel sounds, No tenderness Musculoskeletal: No tenderness Integumentary: Tenderness/swelling, Erythema (Posterior proximal right calf with puncture wound, surrounding erythema and swelling, also erythema swelling and pain of right ankle), [place] Neurological: Normal speech, Normal strength at 5/5 x4 extr, Normal tone, Normal affect - Studies Laboratory Data (last 24 hrs) 07/20/23 07/20/23 07/20/23 17:39 17:39 17:39 WBC 14.00 H Hgb 13.7 Hct 40.5 Plt Count 633 H PT 11.7 INR 1.06 APTT 32.2 Sodium 138 Potassium 3.7 BUN 8 Creatinine 1.01 Glucose 97 Total Bilirubin 0.3 AST 14 L ALT 27 Alkaline Phosphatase 68 Assessment and Plan - Plan Assessment: Right lower extremity cellulitis from dog bitefailed outpatient management Fibromyalgia Sinus tachycardia Plan: Right lower extremity cellulitis from dog bitefailed outpatient management Was taking Augmentin 875 twice daily since 07/16/2023, erythema, swelling worse with increasing pain. No acute findings on x-ray or ultrasound. Continue IV antibiotics. She received a tetanus shot during her ED visit on 07/16. Fibromyalgia Sinus tachycardia Continue home medications. DVT PPX: Lovenox Code status: Full Discharge Plan: Home Plan to discharge in: 48 Hours - Advance Directives Does patient have a Living Will: No Does patient have a Durable POA for Healthcare: No - Code Status/Comfort Care Code Status Assessed: Yes (Full code) Critical Care: No Time Spent Managing Pts Care (In Minutes): 55
[2023-07-20] MEDS ORDERED: ONDANSETRON 4 MG/2 ML VIAL IV PRN (23:09)
[2023-07-20] MEDS: NA CHLORIDE 0.9% 1,000 ML IV SCH (23:40)
[2023-07-21 00:36] VITALS: BMI 20.5
[2023-07-21] MEDS ORDERED: AMPICILLIN/SULBACT 3 GM in NA CHLORIDE 0.9% 100 ML IVPB SCH ×2 (01:00→08:00)
[2023-07-21 04:16] LABS: Absolute Lymphocytes (CBC) 4.3 K/uL (0.7-4.9); Hematocrit 37.5 % (36.0-45.0); Lymphocytes % 32.4 % (15.3-44.8); MCV 85.5 fL (80-100); MPV 8.8 fL (7.6-11.3); Platelets 569 thou/uL (152-406); RBC Red Blood Cell Count 4.39 M/uL (3.86-4.86)
[2023-07-21 04:40] LABS: Potassium 3.7 mEq/L (3.5-5.1)
[2023-07-21] MEDS ORDERED: KCL 20 MEQ/100 mL IVPB 20 MEQ/100 ML BAG IV SCH (06:00)
[2023-07-21] MEDS: NA CHLORIDE 0.9% 1,000 ML IV SCH ×2 (09:08→19:09)
[2023-07-21] MEDS: AMPICILLIN/SULBACT 3 GM in NA CHLORIDE 0.9% 100 ML IVPB SCH ×3 (09:09→21:48)
[2023-07-21] MEDS: HYDROCODONE/APAP 7.5/325 MG TAB PO PRN ×2 (09:35→18:06)
[2023-07-21 09:56] LABS: Specific Gravity > 1.030 (1.005-1.030); Urine Bacteria None Seen /HPF (<20); Urine Bilirubin NEGATIVE (Negative); Urine Blood Negative (Negative); Urine Clarity Clear (Clear); Urine Color Yellow (Yellow); Urine Glucose NEGATIVE (Negative); Urine Protein TRACE (Negative); Urine RBC <5 /HPF (None Seen); Urine Urobilinogen Normal (Normal)
--- NOTE | 2023-07-21 14:55 | EKG ---
Test Date: 2023-07-20 Test Time: 17:41:32 Supervisor [employer]: ES MEASUREMENT RESULTS: Intervals: Rate: 77 OR: 132 QRSD: 88 QT: 414 QTc: 468 [place]: P: 22 OR: 132 QRS: 37 T: 22 INTERPRETIVE STATEMENTS: Normal sinus rhythm Normal ECG Compared to ECG 09/24/2017 11:59:11 No significant changes Electronically Signed On 07-21-23 14:53:35 CDT by Corky Salvador
--- NOTE | 2023-07-21 20:52 | P.PN ---
Subjective Date of Service: 07/21/23 Chief Complaint: RLE cellulitis No acute events since admission. She reports that she sustained a dog bite from her vaccinated dog at home on 07/15/2023. She reports recieving a Tdap vaccine last week. She states that she failed outpatient therapy with amoxicillin- clavulanate. She denies any fevers, chills, chest pain, or shortness of breath. Review of Systems 10-point ROS is otherwise unremarkable Musculoskeletal: Leg Pain (right) Integumentary: Other (two dog bites to right leg) Physical Examination - Vital Signs Temperature: 97.3 F Blood Pressure: 117/53 Pulse: 95 Respirations: 18 Pulse Ox (%): 97 - Physical Exam General: Alert, In no apparent distress, Oriented x3 HEENT: Atraumatic, Mucous membr. moist/pink, Sclerae nonicteric Neck: JVD not distended Respiratory: Clear to auscultation bilaterally, Normal air movement Cardiovascular: No edema, Regular rate/rhythm, Normal S1 S2, No gallops, No rubs, No murmurs Gastrointestinal: Normal bowel sounds, Soft and benign, Non-distended, No tenderness, No rebound, No guarding Musculoskeletal: No clubbing Integumentary: Other (purulent cellulitis on two dog bite puncture wounds. one on the posterior superior right calf and another on the lateral right ankle.) Assessment And Plan - Plan # Sepsis secondary to Purulent Right Lower Extremity Cellulitis from Infected Dog Bite She met sepsis criteria based on HR > 90 bpm and WBC > 12,000, and the suspected source is cellulitis. - General Surgery consulted and spoke with Dr. Carter - Plans for debridement tomorrow - NPO past midnight - Sepsis order set was initiated - Initial Lactate was 1.2 - Blood cultures drawn before antibiotics were given - Broad spectrum antibiotics started: Ampicillin-Sulbactam - In regards to fluids: - 30 mL/kg of IV fluids was not administered given SBP > 90, MAP > 65, lactic acid < 4 # Fibromyalgia - Reconcile home medications once verified Clive Jaimes M.D.
[2023-07-22] MEDS: NA CHLORIDE 0.9% 1,000 ML IV SCH ×3 (02:46→15:09)
[2023-07-22 02:50] LABS: Absolute Lymphocytes (CBC) 4.3 K/uL (0.7-4.9); Hematocrit 36.1 % (36.0-45.0); MCV 85.2 fL (80-100); MPV 8.9 fL (7.6-11.3); Platelets 538 thou/uL (152-406); RBC Red Blood Cell Count 4.23 M/uL (3.86-4.86)
[2023-07-22 03:13] LABS: Potassium 3.6 mEq/L (3.5-5.1)
[2023-07-22] MEDS: AMPICILLIN/SULBACT 3 GM in NA CHLORIDE 0.9% 100 ML IVPB SCH ×4 (03:20→20:11)
[2023-07-22] MEDS ORDERED: KCL 20 MEQ/100 mL IVPB 20 MEQ/100 ML BAG IV SCH (04:00)
[2023-07-22] MEDS ORDERED: Ringers Lactate 1,000 ML IV ONE (11:48)
[2023-07-22] MEDS ORDERED: FENTANYL CITR 100 MCG/2 ML ONE (15:05)
[2023-07-22] MEDS ORDERED: propofoL 200 MG/20 ML VIAL IV ONE (15:05)
[2023-07-22] MEDS ORDERED: LIDOCAINE 2% MPF 5 ML VIAL ONE (15:05)
[2023-07-22] MEDS ORDERED: BUPIVACAINE 0.25% PF 10 ML VIAL ONE (15:07)
[2023-07-22] MEDS ORDERED: MIDAZOLAM HCL 2 MG/2 ML INJ ONE (15:08)
--- NOTE | 2023-07-22 15:37 | P.OP ---
Preoperative diagnosis: Multiple RIGHT lower extremity Dog Bites Postoperative diagnosis: Multiple RIGHT lower extremity Dog Bites Primary procedure: Debridement of Multiple RIGHT lower extremity Dog Bites Anesthesia: GETA + Local Estimated blood loss: <15cc Specimen: Debridement of Multiple RIGHT lower extremity Dog Bites Findings: 3 dog bites of RIGHT leg, necrotic tissues into adipose Complications: None Transferred to: Recovery Room Condition: Good
[2023-07-22] MEDS: HYDROMORPHONE HCL 1 MG/ML INJ ONE ×2 (16:10→16:25)
--- NOTE | 2023-07-22 16:17 | OP ---
Date of Procedure: 07/22/2023 Surgeon: Nathan Carter MD, Preoperative Diagnosis: Multiple dog bites to the right lower extremity, lower extremity being below the knee. Postoperative Diagnosis: Multiple dog bites to the right lower extremity, lower extremity being belo w the knee. Procedure Performed: Debridement of multiple right lower extremity dog bites. Anesthesia: General endotracheal plus local with 0.25% Marcaine. Estimated Blood Loss: Less than 50 cc. Specimen: Debridement of multiple right lower extremity dog bites. Findings: Three dog bites to the right lower extremity, necrotic tissue extending and adipose tissue . Complications: None. Disposition: The patient was transferred to the recovery room in good condition. Procedure In Detail: After informed consent was obtained, the patient was brought to the operating r oom, prepped and prepped in the usual sterile fashion after adequate anesthesia was achieved. I made a curvilinear incision around several areas of obvious dog bite injury, avulsion injuries with infec tion to the right lower extremity all below the knee. They were in the calf area, 2 areas of punctat e approximately 4 cm below the popliteal fossa. There were 2 areas of concern. These were both circ umferentially dissected using a 15 blade down to subcutaneous tissue. Electrocautery was used to rem ove this all the way down to subcutaneous fat. Both these areas were approximately 2 cm x 1 cm and a dipose tissue. These were sent off for pathologic examination. After this area was cleansed with st erile saline, it was packed with 2 inch Alex with Vashe-soaked in a sterile dressing applied. I the n turned my attention to the lateral ankle at this point. There was an area of necrotic tissue here as well, which was takedown similarly 2 cm x 1 cm down to the subcutaneous tissues using a 15 blade. This also has some necrotic tissue, which was removed all the way down to subcutaneous tissues. The branches of veins were appreciated and none of these were involved. The tissue was removed, sent of f for pathologic examination. The area was copiously irrigated. Hemostasis was achieved with electr ocautery sparing all blood vessels. At this point, the wound was then packed with Vashe-soaked Kerli x and sterile dressing applied. The patient tolerated the procedure well without evidence of complic ation and transferred to PACU in good condition. All counts were correct at the end of the case. TK/MODL Voice ID: [id number] Report ID: [id number]
[2023-07-22] MEDS: FENTANYL CITR 100 MCG/2 ML ONE ×4 (16:30→16:49)
[2023-07-22 17:05] VITALS: O2SAT 97
[2023-07-22] MEDS ORDERED: HYDROMORPHONE HCL 1 MG/ML INJ ONE (17:08)
--- NOTE | 2023-07-22 19:56 | P.PN ---
Subjective Date of Service: 07/22/23 Chief Complaint: RLE cellulitis No new events. Her pain is well-controlled. She has been NPO past midnight in anticipation for debridement of her right lower extremity wounds with Dr. Carter. She is currently scheduled for 13:00. Review of Systems 10-point ROS is otherwise unremarkable Musculoskeletal: Leg Pain (right) Integumentary: Other (dog bite wound - right) Physical Examination - Vital Signs Temperature: 97.8 F Blood Pressure: 124/70 Pulse: 68 Respirations: 18 Pulse Ox (%): 98 Assessment And Plan - Plan - Physical Exam General: Alert, In no apparent distress, Oriented x3 HEENT: Atraumatic, Sclerae nonicteric Respiratory: Clear to auscultation bilaterally, Normal air movement Cardiovascular: No edema, Regular rate/rhythm, No murmurs Gastrointestinal: Soft, Non-distended, No tenderness Integumentary: Other (purulent cellulitis on two dog bite puncture wounds. one on the posterior superior right calf and another on the lateral right ankle.) # Sepsis secondary to Purulent Right Lower Extremity Cellulitis from Infected Dog Bite She met sepsis criteria based on HR > 90 bpm and WBC > 12,000, and the suspected source is cellulitis. - General Surgery consulted and spoke with Dr. Carter - Plans for debridement today at 13:00 - Sepsis order set was initiated - Initial Lactate was 1.2 - Blood cultures drawn before antibiotics were given - Broad spectrum antibiotics started: Ampicillin-Sulbactam - In regards to fluids: - 30 mL/kg of IV fluids was not administered given SBP > 90, MAP > 65, lactic acid < 4 # Fibromyalgia - Reconcile home medications once verified Clive Jaimes M.D.
[2023-07-23] MEDS: AMPICILLIN/SULBACT 3 GM in NA CHLORIDE 0.9% 100 ML IVPB SCH ×2 (03:28→08:00)
[2023-07-23] MEDS: NA CHLORIDE 0.9% 1,000 ML IV SCH (03:28)
[2023-07-23 04:03] LABS: Potassium 3.6 mEq/L (3.5-5.1)
[2023-07-23] MEDS ORDERED: CIPROFLOXACIN 400mg IV 400 MG/200 ML BAG IV ONE (08:10)
--- NOTE | 2023-07-23 08:13 | P.CNS ---
Date of Consult: 07/23/23 Reason for Consult: dog bite wound infection Chief Complaint: RLE cellulitis History of Present Illness: Patient is a 52-year-old female with a history of PAD and neuropathy who was bitten by dog on her right leg on 07/15/2023. She came to the emergency depart ment on 07/16/2023 where she was evaluated and given a tetanus shot and prescription for Augmentin for 10 days without improvement in symptoms. She was admitted for cellulitis and dog bite infection and underwent debridement on 07/[address] Carter. ID was consulted. Allergies metronidazole [From Flagyl] Allergy (Verified 07/20/23 23:54) Unknown clarithromycin Adverse Reaction (Verified 07/20/23 23:54) constipation, bradycardia meclizine Adverse Reaction (Verified 07/20/23 23:54) bradycardia steroids Allergy (Uncoded 07/20/23 23:54) Anaphylaxis Home medications list reviewed: Yes Home Medications: Amitriptyline HCl 100 mg PO BEDTIME 07/20/23 Buspirone HCl [Buspar] 10 mg PO DAILY 07/20/23 Escitalopram [Lexapro*] 10 mg PO DAILY 07/20/23 Folic Acid 1 mg PO DAILY 07/20/23 Gabapentin 800 mg PO TID 07/20/23 Meloxicam 7.5 mg PO DAILY 07/20/23 Metoprolol Succinate [Toprol Xl*] 100 mg PO DAILY 07/20/23 Mirtazapine [Remeron*] 15 mg PO BEDTIME 07/20/23 Omeprazole [Prilosec] 40 mg PO DAILY 07/20/23 Pramipexole [Mirapex*] 0.5 mg PO BEDTIME 07/20/23 Vitamin D [Drisdol*] 1.25 mg PO EVERY 7TH DAY 07/20/23 Ciprofloxacin HCl 500 mg PO BID 10 Days #20 tab 07/23/23 Hydrocodone/Acetaminophen [Hydrocodon-Acetaminophen 5-325] 1 tab PO Q6HP PRN 3 Days #12 tab 07/23/23 - Past Medical/Surgical History Diabetic: No -: Sinus tachycardia -: Fibromyalgia -: Neuropathy -: PAD -: Cholecystectomy Psychosocial/ Personal History: Lives at home with family - Family History Mother Medical History: Cancer Father Medical History: Lung disease - Social History Smoking Status: Current every day smoker Alcohol use: No CD- Drugs: No Caffeine use: Yes Place of Residence: Home Review of Systems 10-point ROS is otherwise unremarkable Integumentary: Other (dog bite RLE) Physical Examination Temp Pulse Resp BP Pulse Ox 97.8 F 75 17 117/56 L 97 07/23/23 04:00 07/23/23 04:00 07/23/23 04:00 07/23/23 04:00 07/23/23 04:00 General: Alert, In no apparent distress, Oriented x3 HEENT: Atraumatic, Normocephalic Neck: Supple, JVD not distended Respiratory: Clear to auscultation bilaterally, Normal air movement Cardiovascular: Normal S1 S2, Edema (RLE) Gastrointestinal: Normal bowel sounds, Soft and benign, No tenderness Integumentary: Other (dog bite s/p debridement site dressing clean dry and intact) Neurological: Normal gait, Normal speech, Normal tone, Normal affect Laboratory Data - Reviewed Microbiology Data -Reviewed Imagings Data: -Reviewed Conclusions/Impression: Problem List Sepsis Cellulitis right lower extremity Dog bite wound, infected Fibromyalgia Cellulitis, Infected Dog Bite Wound of Right Lower Extremity - On 07/16, patient was seen in the ED where she was given a tetanus injection and prescribed Augmentin PO x 10 days. Dog bite wound was worsening and patient came back to the ED and was admitted for infected dog bite wound and cellulitis. - Started on Unasyn IV 07/21 - s/p debridement on 07/[address] Carter - Wound culture 07/20: Enterobacter cloacae Recommendations - Wound culture with Enterobacter cloacae, resistant to ampicillin, augmentin. -Discontinue Unasyn. Start on Ciprofloxacin 500mg PO BID x 10 days (07/23 to 08/02) - Wound care per Dr. Carter - Follow up with Dr. Carter as outpatient in 1-2 weeks. Case discussed with Cabrera Palmer
--- NOTE | 2023-07-23 08:58 | P.DS ---
Admission Date: 07/20/23 Discharge Date: 07/23/23 Disposition: ROUTINE DISCHARGE Discharge Condition: GOOD Reason for Admission: RLE cellulitis Consultations: 1. General Surgery 2. Infectious Diseases Procedures: - 07/22/2023 - Debridement of Multiple Right Lower Extremity Dog Bites Hospital Course: DIAGNOSES: # Sepsis secondary to Purulent Enterobacter Cloacae Right Lower Extremity Cellulitis from Infected Dog Bite # Fibromyalgia HOSPITAL COURSE: Ms. Rajni Jasso is a 52 year old female with a past medical history significant for fibromyalgia who was admitted to the [facility] on 07/20/2023 for infected right lower extremity dog bites. She was admitted to the Medicine service. Upon further evaluation, her right lower extremity Doppler revealed, "no DVT in the right lower extremity." her right tibula/fibula x-ray revealed, "negative right tibia & fibula examination." She was started on ampicillin-sulbactam and General Surgery was consulted. On 07/22/2023, she underwent debridement of the dog bite wounds with Dr. Carter. She tolerated the procedure well, without any issues. Her wound culture would return positive for Enterobacter Cloacae. Infectious Diseases was consulted and she was evaluated by PINA Davis. She has cleared her for discharge with 10 days of ciprofloxacin. On 07/23/2023, she was seen on morning rounds and deemed medically stable for discharge. She was discharged with instructions to schedule follow-up appointments with her PCP (Dr. Mazariegos) and with General Surgery (Dr. Carter). She was provided prescriptions for ciprofloxacin and hydrocodone-acetaminophen. She and her family members were given the opportunity to ask questions and reported no further questions. Furthermore, all questions were answered to the best of my ability. Prior to the controlled substance prescription, a PDMP review was conducted. Over the last 2 years, she has received 9 prescriptions from 2 providers to 1 pharmacy. Her opioid overdose risk score is 300. A copy of this discharge summary will be sent to the above providers to facil itate continuity of care. Today, I personally spent 25 minutes on her case, of which greater than 50% of the time was spent in patient education, counseling, and coordination of care as described above. - Physical Exam General: Alert, In no apparent distress, Oriented x3 HEENT: Atraumatic, Sclerae nonicteric Respiratory: Clear to auscultation bilaterally, Normal air movement Cardiovascular: No edema, Regular rate/rhythm, No murmurs Gastrointestinal: Soft, Non-distended, No tenderness Integumentary: Surgical wounds covered in clean dressing Vital Signs/Physical Exam: Temp Pulse Resp BP Pulse Ox 97.8 F 75 17 117/56 L 97 07/23/23 04:00 07/23/23 04:00 07/23/23 04:00 07/23/23 04:00 07/23/23 04:00 Laboratory Data at Discharge: WBC 12.40 thou/uL (4.3-10.9) H 07/22/23 02:17 Hgb 12.3 g/dL (12.0-15.0) 07/22/23 02:17 Hct 36.1 % (36.0-45.0) 07/22/23 02:17 Plt Count 538 thou/uL (152-406) H 07/22/23 02:17 PT 11.7 SECONDS (9.5-12.5) 07/20/23 17:39 INR 1.06 07/20/23 17:39 APTT 32.2 SECONDS (24.3-36.9) 07/20/23 17:39 Sodium 138 mEq/L (136-145) 07/23/23 02:49 Potassium 3.6 mEq/L (3.5-5.1) 07/23/23 02:49 BUN 7 mg/dL (7-18) 07/23/23 02:49 Creatinine 0.70 mg/dL (0.55-1.02) 07/23/23 02:49 Glucose 102 mg/dL (74-106) 07/23/23 02:49 Total Bilirubin 0.3 mg/dL (0.2-1.0) 07/20/23 17:39 AST 14 U/L (15-37) L 07/20/23 17:39 ALT 27 U/L (13-56) 07/20/23 17:39 Alkaline Phosphatase 68 U/L (45-117) 07/20/23 17:39 Home Medications: Amitriptyline HCl 100 mg PO BEDTIME 07/20/23 Buspirone HCl [Buspar] 10 mg PO DAILY 07/20/23 Escitalopram [Lexapro*] 10 mg PO DAILY 07/20/23 Folic Acid 1 mg PO DAILY 07/20/23 Gabapentin 800 mg PO TID 07/20/23 Meloxicam 7.5 mg PO DAILY 07/20/23 Metoprolol Succinate [Toprol Xl*] 100 mg PO DAILY 07/20/23 Mirtazapine [Remeron*] 15 mg PO BEDTIME 07/20/23 Omeprazole [Prilosec] 40 mg PO DAILY 07/20/23 Pramipexole [Mirapex*] 0.5 mg PO BEDTIME 07/20/23 Vitamin D [Drisdol*] 1.25 mg PO EVERY 7TH DAY 07/20/23 Ciprofloxacin HCl 500 mg PO BID 10 Days #20 tab 07/23/23 Hydrocodone/Acetaminophen [Hydrocodon-Acetaminophen 5-325] 1 tab PO Q6HP PRN 3 Days #12 tab 07/23/23 New Medications: Hydrocodone/Acetaminophen [Hydrocodon-Acetaminophen 5-325] 1 tab PO Q6HP PRN 3 Days #12 tab PRN Reason: Pain Scale 8-10 (Severe) Ciprofloxacin HCl 500 mg PO BID 10 Days #20 tab Physician Discharge Instructions: 1. Please call and schedule a follow-up appointment with your PCP (Dr. Mazariegos) in 3-5 days 2. Please call and schedule a follow-up appointment with General Surgery (Dr. Carter) in 5-7 days - Please do not drive or operate heavy machinery while taking pain medications - Please follow-up with your PCP for medication refills/adjustments Do not change dressing for first 48hrs Vashe, applied damp to dry daily, wrap and elevate extremity Followup: Elvira Mazariegos MD [Primary Care Provider] - Nathan Carter MD [ACTIVE - CAN ADMIT] - Time spent managing pt's care (in minutes): 25
[2023-07-23] MEDS ORDERED: POTASSIUM CL SA 10 MEQ TAB PO ONE (09:00)
[2023-07-23] MEDS: HYDROCODONE/APAP 7.5/325 MG TAB PO PRN (11:04)
[2023-07-23 12:53] VITALS: BP 135/68; TEMP 97.2
== END 2023-07-23 12:50 | disposition home or self-care (01) | DRG 854 ==
LOC: ER 16:52 → ERHOLD 21:15 → 2ND 21:53
PROVIDERS: ADMIT Internal Medicine; ATTEND Internal Medicine
PROC: 0JBN0ZZ Excision of Right Lower Leg Subcutaneous Tissue and Fascia, Open Approach (ICD-10-PCS; principal; 2023-07-20)
DX: A41.9 Sepsis, unspecified organism (principal); L03.115 Cellulitis of right lower limb; Z16.11 Resistance to penicillins; Z16.29 Resistance to other single specified antibiotic; M79.7 Fibromyalgia; G62.9 Polyneuropathy, unspecified; S81.851A Open bite, right lower leg, initial encounter; F17.210 Nicotine dependence, cigarettes, uncomplicated; B96.89 Other specified bacterial agents as the cause of diseases classified elsewhere; R00.0 Tachycardia, unspecified; Z88.0 Allergy status to penicillin; Z88.1 Allergy status to other antibiotic agents; Z88.8 Allergy status to other drugs, medicaments and biological substances; Z90.49 Acquired absence of other specified parts of digestive tract; Z79.899 Other long term (current) drug therapy
CPT/HCPCS: 36415; 80048; 80053; 81001; 82947; 83605; 85025; 85610; 85730; 87040; 87070; 87077; 87186; 87205; 88304; 93005; 93971; 96365; 96366; 99285; J0295; J0744; J1170; J2001; J2250; J2405; J2704; J3010; J3480; J7030; J7120